=== PATIENT | male | born 1940 | race Caucasian/White ===

== ENCOUNTER → 2022-06-21 10:44 | Outpatient (CLI) | payer MEDICARE, SELFPAY ==
--- NOTE | ~2022-06-21 | XR_ITS ---
EXAM: XR lumbar spine 2-3V DATE: 06/21/2022 10:55 HISTORY: no injury lbp right side for 3 days . COMPARISON: None available. FINDINGS: Osteopenia. Cholecystectomy clips. Mild lumbar scoliosis. 5 nonrib-bearing lumbar-type vert ebral bodies. Pedicles intact. 2 mm anterolisthesis at L4-5. Multilevel disc space narrowing and naseem inal osteophytosis, severe at L5-S1. Vertebral body heights preserved. Multilevel moderate facet scle rosis and hypertrophy. No fracture or dislocation. Abdominal aortic calcification without aneurysm. IMPRESSION: Grade 1 anterolisthesis at L4-5. Multilevel degenerative disc disease, severe at L5-S1. M oderate lower lumbar facet arthropathy. Reviewed, dictated and finalized at location K. IMPRESSION: Grade 1 anterolisthesis at L4-5. Multilevel degenerative disc disea se, severe at L5-S1. Moderate lower lumbar facet arthropathy.
== END ==
PROVIDERS: PCP Physician Assistant; Visit Provider Emergency Medicine
DX: M54.16 Radiculopathy, lumbar region (principal); M51.36 Other intervertebral disc degeneration, lumbar region
CPT/HCPCS: 72100

== ENCOUNTER 2022-07-21 17:08 | Observation (INO) | payer MEDICARE, SELFPAY ==
[2022-07-21] VITALS (19 sets, daily range): BP systolic 144–186; BP diastolic 79–103; PULSE 96–114; RESP 11–27; TEMP 36.8–37; O2SAT 96–100; BMI 25.4
--- NOTE | ~2022-07-21 | XR_ITS ---
EXAMINATION: XR chest 1V portable INDICATION: Altered mental status TECHNIQUE: Portable AP chest at 1814 hours COMPARISON: None available FINDINGS: There are minimal airspace opacities of the lung bases. No pleural effusion or pneumothorax . The cardiomediastinal silhouette is normal for technique. IMPRESSION: 1. Bibasilar airspace opacities, consistent with atelectasis versus pneumonia. Reviewed, dictated and finalized at location F.
--- NOTE | 2022-07-21 17:19 | ED.AMS ---
HPI - Altered Mental Status General Chief Complaint: Altered Mental Status Stated Complaint: combative with - dementia History of Present Illness HPI narrative: 81-year-old male presenting to the emergency department for evaluation of increased agitation. Patient does have dementia and is ANO x1 at baseline. states that she was unable to get him out of the car so she called EMS. Upon arrival to the emergency department patient has no complaints. Patient arrived to the emergency department she states that she was unable to convince the patient not to take a ride in the car. The patient was wishing to go see a house on the [address] that they used to own, states that they sold the house approximately 7 years ago. was trying to convince the patient that he should not go for the car ride and the patient was getting increasingly agitated. states that she feels she can no longer care for the patient at home due to his increasing dementia. states that the children feel that the patient should be admitted to the memory care unit and the is now concerned that she cannot control his behavior at home. Related Data Home Medications Medication Instructions Recorded Confirmed glucosamine HCl 1,500 mg tablet 1,500 mg PO DAILY 02/21/19 07/21/22 aspirin 325 mg tablet 325 mg PO HS 07/04/19 07/21/22 cetirizine 10 mg tablet (Zyrtec) 10 mg PO DAILY 07/04/19 07/21/22 omega-3 fatty acids 1,000 mg 1,000 mg PO BID 07/04/19 07/21/22 capsule (Fish Oil Concentrate) docusate sodium 100 mg capsule 100 mg PO TID 07/21/22 07/21/22 famotidine 20 mg tablet 20 mg PO DAILY 07/21/22 07/21/22 finasteride 5 mg tablet 5 mg PO DAILY 07/21/22 07/21/22 multivitamin with minerals 1 tablet PO DAILY 07/21/22 07/21/22 niacin 500 mg capsule 500 mg PO BID 07/21/22 07/21/22 simvastatin 10 mg tablet 10 mg PO HS 07/21/22 07/21/22 tamsulosin 0.4 mg capsule 0.4 mg PO DAILY 07/21/22 07/21/22 Allergies Allergy/AdvReac Type Severity Reaction Status Date / Time No Known Allergies Allergy Verified 06/21/22 10:10 Review of Systems Review of Systems: All systems reviewed & are unremarkable except as noted in HPI and below PMFSH Surgical History Surgical History H/O total cystectomy History of back surgery Hx of cholecystectomy Hx of hernia repair Family History Family History Father Family history of congestive heart failure, Onset Age: 69 Acute myocardial infarction, Onset Age: 69 Mother Family history of alcoholism Acute myocardial infarction, Onset Age: 62 Social History Social History Smoking status: Never smoker Alcohol intake: current Lack of Transportation: No Lack of Food: Never True Current Housing: I Have Housing Concerned About Future Housing: No Difficulty Paying Gas/Electric Bills: No Difficulty Paying for Meds: No Currently Unemployed: No Education: High School Diploma/GED Difficulty w/ Childcare or Family Care: No Exam Narrative: APPEARANCE: Well appearing, no pain, no distress, well-nourished. HEAD: normocephalic, atraumatic. EYES: PERRLA/EOMI, conjunctivae clear. NOSE: Normal no drainage NECK: Supple. No adenopathy, no masses. RESPIRATORY: Airway patent, respirations nonlabored. Clear to auscultation bilaterally, no rales, rhonchi, wheezing. CARDIOVASCULAR: Regular rate and rhythm without murmurs rubs or gallops. ABDOMINAL: Soft, nontender, nondistended, normal bowel sounds MUSCULOSKELETAL: Moves all extremities. Strength/ROM intact, No edema, No calf tenderness. NEURO: Alert. Cranial nerves II through XII intact. SKIN: Warm, dry. Normal Color PSYCHIATRIC: Normal affect/mood. Course Course Emergency Course: 81-year-old male with worsening dementia presented to the emergency department for evaluation. [place]
--- NOTE | 2022-07-21 18:01 | PCCCNOTE ---
Met with patients , she requested a list of local facilities as she may be interested in placing her , patient. patient has [employer]. PT/OT orders were also placed.
[2022-07-21 18:04] LABS: Basophils Percent Auto 0.3 % (0.2-1.2); Eosinophils Absolute Auto 0.2 K/mm3 (0-0.3); Eosinophils Percent Auto 1.1 % (0-4.4); Hematocrit 43.3 % (42.0-52.0); Hemoglobin 14.6 g/dL (14.0-18.0); Immature Granulocyte Absolute 0.14 K/mm3 (0.00-0.031); Lymphocytes Absolute Auto 1.38 K/mm3 (0.9-3.2); Mean Corpuscular HGB Conc 33.7 g/dl (32-36); Mean Corpuscular Hemoglobin 32.7 pg (26-34); Mean Corpuscular Volume 97.1 fl (80-100); Mean Platelet Volume 10.3 fl (7.4-10.4); Monocytes Absolute Auto 1.3 K/mm3 (0.1-0.6); Monocytes Percent Auto 9.7 % (2.6-8.5); Neutrophils Absolute Auto 10.7 K/mm3 (1.3-6.7); Neutrophils Percent Auto 77.9 % (45.5-73.1); Platelet Count Result 256 k/mm3 (150-375); Red Blood Count 4.46 M/mm3 (4.6-6.20); Red Cell Distribution Width 12.5 % (11.5-14.5); White Blood Count 13.8 K/mm3 (4.5-10.0)
[2022-07-21 18:15] LABS: Alanine Aminotransferase 28 U/L (6-50); Albumin Level 4.4 g/dL (3.5-5.1); Alkaline Phosphatase 102 U/L (38-126); Anion Gap 8 mmol/L (8-16); Aspartate Amino Transferase 31 U/L (17-59); Bilirubin,Total 0.5 mg/dL (0.2-1.3); Blood Urea Nitrogen 16 mg/dL (9-20); Calcium 8.7 mg/dL (8.4-10.2); Carbon Dioxide 25 mmol/L (22-30); Chloride 105 mmol/L (98-107); Estimated CRCL calculation 73 ml/min; Estimated Glomerular Filt Rate > 60; Glucose 136 mg/dL (65-110); Potassium 4.1 mmol/L (3.4-5.0); Sodium 138 mmol/L (137-145)
[2022-07-21 18:35] LABS: Magnesium 2.4 mg/dL (1.6-2.3)
[2022-07-21 18:36] LABS: INR 0.9; Prothrombin Time 12.8 Seconds (11.1-14.7)
[2022-07-21 19:04] LABS: Influenza A QL RT-PCR Negative (Negative); Influenza B QL RT-PCR Negative (Negative); RSV RNA, RT-PCR Negative (Negative); SARS-CoV-2 RNA PCR Negative (Negative)
--- NOTE | 2022-07-21 19:14 | PC.NURSE ---
Patient report given to HERMELINDO Salter. All questions answered and care of patient transferred.
[2022-07-21] MEDS: IBUPROFEN 400 MG TABLET PO (19:20)
[2022-07-21 19:37] LABS: Appearance Urine Clear (Clear); Bilirubin Urine Negative (Negative); Blood Urine Negative (Negative); Color Urine Yellow (Yellow); Glucose Urine UA Negative (Negative); Ketones Urine Negative (Negative); Leukocyte Esterase Ur Negative LEU/UL (Negative); Nitrate Urine Negative (Negative); Protein Urine Negative (Negative); Specific Grav Ur 1.014 (1.001-1.035); Urobilinogen Urine 0.2 mg/dL (<2.0)
[2022-07-21 19:46] LABS: Add Urine Microscopic? NO
--- NOTE | 2022-07-21 20:18 | PM.IMHP ---
H&P: HPI History of Present Illness Date/Time: 07/21/22 20:18 Chief Complaint: AMS Narrative: This is an 81-year-old male with past medical history significant for dementia patient resides at home with who is her main caregiver, benign prostatic hyperplasia, degenerative joint disease. Patient was brought to the emergency room for evaluation due to altered mental status he is unable to provide any meaningful history can tell why his in the emergency room he keeps saying the he got tangled up in the stairs which his denies according to he kept wanting to leave the house stating he needed to get somewhere and got agitated. Preliminary workup was significant for a chest x-ray was reported as: EXAMINATION: XR chest 1V portable INDICATION: Altered mental status TECHNIQUE: Portable AP chest at 1814 hours COMPARISON: None available FINDINGS: There are minimal airspace opacities of the lung bases. No pleural effusion or pneumothorax. The cardiomediastinal silhouette is normal for technique. IMPRESSION: 1. Bibasilar airspace opacities, consistent with atelectasis versus pneumonia. Review of Systems Review of Systems: ROS unobtainable: Yes unobtainable due to medical condition (Dementia) [facility] Surgical History Surgical History H/O total cystectomy History of back surgery Hx of cholecystectomy Hx of hernia repair Family History Family History Father Family history of congestive heart failure, Onset Age: 69 Acute myocardial infarction, Onset Age: 69 Mother Family history of alcoholism Acute myocardial infarction, Onset Age: 62 Social History Social History Smoking status: Former smoker Alcohol intake: never Substance use: never Substance use type: does not use Lack of Transportation: No Lack of Food: Never True Current Housing: I Have Housing Concerned About Future Housing: No Difficulty Paying Gas/Electric Bills: No Difficulty Paying for Meds: No Currently Unemployed: No Education: High School Diploma/GED Difficulty w/ Childcare or Family Care: No Spiritual care concerns: No Meds Home Medications and Allergies Home Medications Medication Instructions Recorded Confirmed Type glucosamine HCl 1,500 mg tablet 1,500 mg PO DAILY 02/21/19 07/21/22 History aspirin 325 mg tablet 325 mg PO HS 07/04/19 07/21/22 History cetirizine 10 mg tablet (Zyrtec) 10 mg PO DAILY 07/04/19 07/21/22 History omega-3 fatty acids 1,000 mg 1,000 mg PO BID 07/04/19 07/21/22 History capsule (Fish Oil Concentrate) donepezil 5 mg tablet (Aricept) 2.5 mg PO QHS #90 tabs 11/03/21 07/21/22 Rx memantine 5 mg tablet 5 mg PO BID #180 tabs 05/24/22 07/21/22 Rx naproxen 500 mg tablet 500 mg PO BID PRN pain #60 tabs 06/21/22 07/21/22 Rx quetiapine 25 mg tablet (Seroquel) 25 mg PO BID #60 tabs 07/01/22 07/21/22 Rx docusate sodium 100 mg capsule 100 mg PO TID 07/21/22 07/21/22 History famotidine 20 mg tablet 20 mg PO DAILY 07/21/22 07/21/22 History finasteride 5 mg tablet 5 mg PO DAILY 07/21/22 07/21/22 History multivitamin with minerals 1 tablet PO DAILY 07/21/22 07/21/22 History niacin 500 mg capsule 500 mg PO BID 07/21/22 07/21/22 History simvastatin 10 mg tablet 10 mg PO HS 07/21/22 07/21/22 History tamsulosin 0.4 mg capsule 0.4 mg PO DAILY 07/21/22 07/21/22 History Allergies Allergy/AdvReac Type Severity Reaction Status Date / Time No Known Allergies Allergy Verified 06/21/22 10:10 Vital Signs Vital Signs - 24 hr 07/21/22 17:11 07/21/22 17:30 07/21/22 17:27 Temperature 98.6 F Pulse Rate 114 H 114 H 108 H Respiratory Rate 20 27 H Blood Pressure 175/85 H Pulse Oximetry 100 Oxygen Delivery Room Air 07/21/22 17:30 07/21/22 17:31 07/21/22 17:45 Temperature Pulse Rate 107 H 107 H 108 H Respiratory Ra
--- NOTE | 2022-07-21 21:44 | ADMGEN ---
This patient, Bam Stoddard Sr., was admitted to Medical Room 255-01. Patient/family oriented to hospital policies and general routines including ID bracelet, bed and alarms, visiting hours, pain management, procedures, bathroom and other care routines, personal items, smoking policy, room service/diet, and visiting hours. Information on how to activate the Rapid Response Team has been discussed. Patient/Family are encouraged to report perceived risks to care and to ask questions if they do not understand what they are told or what they should do.
[2022-07-21] MEDS: AZITHROMYCIN 500 MG/NS 250 ML 500 MG/250 ML BAG 250 MG IVPB (21:46)
[2022-07-22 05:38] VITALS: BP 151/78; PULSE 70; RESP 18; TEMP 36.7; O2SAT 96
[2022-07-22 08:00] VITALS: PULSE 70; RESP 18; O2SAT 96
--- NOTE | 2022-07-22 08:14 | ECG_ITS ---
Measurements Intervals [place] Rate: 74 P: 59 TX: 160 QRS: 8 QRSD: 94 T: 80 QT: 375 QTc: 418 Interpretive Statements SINUS RHYTHM PROBABLE INFERIOR MYOCARDIAL INFARCTION , PROBABLY OLD [35 ms Q WAVE IN II/aVF] NO PREVIOUS ECG AVAILABLE FOR COMPARISON Electronically Signed On 07-22-2022 10:57:23 CDT by Sunshine John M.D.
[2022-07-22 08:54] LABS: Hematocrit 40.8 % (42.0-52.0); Hemoglobin 13.5 g/dL (14.0-18.0); Mean Corpuscular HGB Conc 33.1 g/dl (32-36); Mean Corpuscular Hemoglobin 32.5 pg (26-34); Mean Corpuscular Volume 98.1 fl (80-100); Mean Platelet Volume 10.4 fl (7.4-10.4); Platelet Count Result 234 k/mm3 (150-375); Red Blood Count 4.16 M/mm3 (4.6-6.20); Red Cell Distribution Width 12.6 % (11.5-14.5); White Blood Count 12.9 K/mm3 (4.5-10.0)
[2022-07-22] MEDS: THERAPEUTIC MULTIVITAMINS/MINERALS TAB (*BKC) 1 TABLET PO (09:03)
[2022-07-22] MEDS: FAMOTIDINE 20 MG TABLET PO (09:03)
[2022-07-22] MEDS: OMEGA 3 POLYUNSAT FATTY ACIDS 1 GM CAP PO ×2 (09:03→17:25)
[2022-07-22] MEDS: DOCUSATE SODIUM 100 MG CAPSULE PO ×2 (09:03→17:25)
[2022-07-22] MEDS: MEMANTINE 5 MG TABLET PO ×2 (09:03→20:49)
[2022-07-22] MEDS: TAMSULOSIN HCL 0.4 MG CAPSULE PO (09:03)
[2022-07-22] MEDS: LORATADINE 10 MG TABLET PO (09:03)
[2022-07-22] MEDS: NIACIN SA 500 MG TABLET PO ×2 (09:04→17:25)
[2022-07-22] MEDS: FINASTERIDE 5 MG TABLET PO (09:04)
[2022-07-22] MEDS: QUEtiapine FUMARATE 25 MG TABLET PO ×2 (09:04→20:49)
[2022-07-22 09:16] LABS: Anion Gap 3 mmol/L (8-16); Blood Urea Nitrogen 13 mg/dL (9-20); Calcium 8.1 mg/dL (8.4-10.2); Carbon Dioxide 28 mmol/L (22-30); Chloride 108 mmol/L (98-107); Estimated CRCL calculation 69 ml/min; Estimated Glomerular Filt Rate > 60; Glucose 109 mg/dL (65-110); Potassium 4.1 mmol/L (3.4-5.0); Sodium 139 mmol/L (137-145)
[2022-07-22 13:49] VITALS: BP 148/88; PULSE 88; RESP 18; TEMP 36.8; O2SAT 96
--- NOTE | 2022-07-22 14:31 | PM.IMPN ---
Progress Note: A&P Assessment and Plan (1) Pneumonia: Code(s): J18.9 - Pneumonia, unspecified organism Status: Acute Assessment and Plan: CXR on presentation shows bibasilar airspace opacities concerning for pneumonia. Patient with mild leukocytosis on presentation. Remains afebrile. Continue ceftriaxone and azithromycin (QTc reviewed) Blood cultures pending Attempt sputum culture COVID and influenza negative Check urinary Legionella and pneumococcal antigens Supportive care to include bronchodilators as needed, incentive spirometry, Cornet valve, expectorants (2) Altered mental status: Code(s): R41.82 - Altered mental status, unspecified Status: Acute Assessment and Plan: Per patient's , patient more acutely confused prior to presentation, likely secondary to infectious etiology in the setting of dementia. Patient appears to be at his baseline at this time. Continue with supportive care and plan as above (3) Dementia with behavioral disturbance: Code(s): F03.918 - Unspecified dementia, unspecified severity, with other behavioral disturbance Status: Acute Assessment and Plan: With agitated/aggressive behavior. Continue home donepezil, memantine, and Seroquel for behavioral disturbances. Patient's no longer able to care for the patient independently at home. Will need to consider placement options. Appreciate care coordination evaluation (4) Benign labile hypertension: Code(s): I10 - Essential (primary) hypertension Status: Acute Assessment and Plan: Blood pressure is elevated on admission up to 180s systolic, improved today in the 140 systolic. Patient does not appear to be on any antihypertensives. Monitor BP trends closely and consider addition of antihypertensive as needed Subjective Date/time seen: 07/22/22 14:31 Interval history: Date of service: 07/22/2022 Bam Stoddard is an 81-year-old male with a history of dementia with behavioral disturbances, BPH, hyperlipidemia who is seen in follow-up for pneumonia. The patient is oriented to self and location only. He is able to state his name, knows he is at [facility], he is aware that we are in the summer season but cannot identify the month or the year. He can identify some simple objects. He is unsure of the details regarding his hospitalization. Cannot recall what he had for breakfast this morning. He denies shortness of breath, cough, chest pain, abdominal pain. His is present at the bedside who reports that he has been agitated at home and she is no longer able to care for him. Review of Systems Review of Systems: ROS unobtainable: Yes unobtainable due to mental status Exam Narrative: General: Well-nourished, well-appearing 81-year-old male, sitting up in bed, comfortable, NARD Neuro: awake, alert and oriented x2, able to follow commands, speech clear, no focal neuro deficits noted, exhibits confusion HEENMT: normocephalic, atraumatic, EOMI, sclerae anicteric Respiratory: clear to auscultation bilaterally, nonlabored breathing Cardio: regular rate, regular rhythm with S1-S2 Abdomen: nondistended, normoactive bowel sounds, soft, nontender to palpation Extremities: no edema, erythema, or tenderness to palpation Skin: no rashes or lesions, warm and dry Psych: Confused, judgment and insight poor Objective Data Vital Signs Vital Signs: Vital Signs - 24 hr 07/21/22 17:11 07/21/22 17:30 07/21/22 17:27 Temperature 98.6 F Pulse Rate 114 H 114 H 108 H Respiratory Rate 20 27 H Blood Pressure 175/85 H Pulse Oximetry 100 Oxygen Delivery Room Air 07/21/22 17:30 07/21/22 17:31 07/21/22 17:45 Temperature Pulse Rate 107 H 107 H 108 H Respiratory Rate 16 24 H 11 L Blood Pressure 175/85 H Pulse Oximetry 98 98 97 Oxygen Delivery 07/21/22 17:46 07/21/22 18:02 07/21/22 18:15 Temperature Pulse Rate 105 H 104 H
--- NOTE | 2022-07-22 16:26 | PCPTNOTE ---
On 07/22/22, the student, [Maureen Melo], provided care and completed [facility] documentation on this patient. I have reviewed the student's documentation and agree with the findings.
[2022-07-22 17:18] VITALS: O2SAT 96
[2022-07-22] MEDS: OLANZapine 5 MG, WATER, STERILE FOR INJECTION 2.1 ML IM (18:59)
[2022-07-22 19:39] VITALS: BP 164/87; PULSE 80; RESP 16; TEMP 36.4; O2SAT 99
[2022-07-22] MEDS: SIMVASTATIN 10 MG TABLET PO (20:49)
[2022-07-22] MEDS: ASPIRIN 325 MG TABLET PO (20:49)
[2022-07-22] MEDS: guaiFENesin 12 HR 600 MG TABCR PO (20:49)
[2022-07-22] MEDS: AZITHROMYCIN 500 MG/NS 250 ML 500 MG/250 ML BAG 200 MG IVPB (21:13)
[2022-07-22 22:09] VITALS: O2SAT 97
[2022-07-23 05:00] VITALS: BP 148/68; PULSE 61; RESP 16; TEMP 36.6; O2SAT 96
[2022-07-23 05:21] LABS: Hematocrit 39.7 % (42.0-52.0); Hemoglobin 12.8 g/dL (14.0-18.0); Mean Corpuscular HGB Conc 32.2 g/dl (32-36); Mean Corpuscular Hemoglobin 31.7 pg (26-34); Mean Corpuscular Volume 98.3 fl (80-100); Mean Platelet Volume 10.5 fl (7.4-10.4); Platelet Count Result 210 k/mm3 (150-375); Red Blood Count 4.04 M/mm3 (4.6-6.20); Red Cell Distribution Width 12.4 % (11.5-14.5); White Blood Count 9.5 K/mm3 (4.5-10.0)
[2022-07-23 05:41] LABS: Anion Gap 3 mmol/L (8-16); Blood Urea Nitrogen 13 mg/dL (9-20); Calcium 7.9 mg/dL (8.4-10.2); Carbon Dioxide 29 mmol/L (22-30); Chloride 107 mmol/L (98-107); Estimated CRCL calculation 61 ml/min; Estimated Glomerular Filt Rate > 60; Glucose 114 mg/dL (65-110); Potassium 3.8 mmol/L (3.4-5.0); Sodium 139 mmol/L (137-145)
[2022-07-23] MEDS: guaiFENesin 12 HR 600 MG TABCR PO ×2 (09:10→22:58)
[2022-07-23] MEDS: FAMOTIDINE 20 MG TABLET PO (09:10)
[2022-07-23] MEDS: FINASTERIDE 5 MG TABLET PO (09:10)
[2022-07-23] MEDS: OMEGA 3 POLYUNSAT FATTY ACIDS 1 GM CAP PO ×2 (09:10→16:56)
[2022-07-23] MEDS: TAMSULOSIN HCL 0.4 MG CAPSULE PO (09:10)
[2022-07-23] MEDS: MEMANTINE 5 MG TABLET PO ×2 (09:10→22:58)
[2022-07-23] MEDS: NIACIN SA 500 MG TABLET PO ×2 (09:10→16:56)
[2022-07-23] MEDS: LORATADINE 10 MG TABLET PO (09:10)
[2022-07-23] MEDS: THERAPEUTIC MULTIVITAMINS/MINERALS TAB (*BKC) 1 TABLET PO (09:10)
[2022-07-23] MEDS: DOCUSATE SODIUM 100 MG CAPSULE PO ×3 (09:10→16:56)
[2022-07-23] MEDS: QUEtiapine FUMARATE 25 MG TABLET PO ×2 (09:11→22:59)
[2022-07-23 14:00] VITALS: BP 162/77; PULSE 81; RESP 20; TEMP 36.4; O2SAT 100
--- NOTE | 2022-07-23 17:15 | PM.IMPN ---
Progress Note: A&P Assessment and Plan (1) Pneumonia: Code(s): J18.9 - Pneumonia, unspecified organism Status: Acute Assessment and Plan: CXR on presentation shows bibasilar airspace opacities concerning for pneumonia. Patient with mild leukocytosis on presentation. Remains afebrile. Continue ceftriaxone and azithromycin (QTc reviewed) Blood cultures NGTD Sputum culture not performed COVID and influenza negative Urinary Legionella and pneumococcal antigens pending Supportive care to include bronchodilators as needed, incentive spirometry, Cornet valve, expectorants Change to oral abx (2) Altered mental status: Code(s): R41.82 - Altered mental status, unspecified Status: Acute Assessment and Plan: Per patient's , patient more acutely confused prior to presentation, likely secondary to infectious etiology in the setting of dementia. Patient appears to be at his baseline at this time. Continue with supportive care and plan as above (3) Dementia with behavioral disturbance: Code(s): F03.918 - Unspecified dementia, unspecified severity, with other behavioral disturbance Status: Acute Assessment and Plan: With agitated/aggressive behavior. Home donepezil, memantine, and Seroquel have annie resumed. Patient's no longer able to care for the patient independently at home and placement being arranged. Difficulty with placement given the patient's agitation at times. Psych consult. Appreciate care coordination evaluation (4) Benign labile hypertension: Code(s): I10 - Essential (primary) hypertension Status: Acute Assessment and Plan: Patient's blood pressure was reviewed on 07/23 Systolic blood pressure elevated to 140-160 range. Not on medications for HTN. Will continue to monitor for now. Subjective Date/time seen: 07/23/22 17:15 Interval history: 81yo male with dementia with behavioral disturbances, BPH, hyperlipidemia who is seen in follow-up for pneumonia. The patient is alert but confused. Hx obtained from at bedside. states the patient has not had any odynophagia or dysphagia. He eats normally. He has had dementia for many years and has been on Aricept and Namenda for a long time. About a month and a half ago, he was started on Seroquel 25 mg daily. Dose was increased to 50 mg about 2 weeks ago. Patient gets agitated at times wanting to drive to his vacation home but the vacation home was sold many years ago. His tries to explain this to him but patient becomes agitated. He has never threatened her directly and has never been abusive. No auditory or visual hallucinations. He does confuse his with his mother. He talks about finding his mother and sister which is more rooted in anxiety. He is able to help clean the kitchen. keeps him on a regimented schedule. Exam Narrative: AF 97.6 162/77 81 20 100% ra Gen - NARD Chest - right base crackles o/w clear. nml RR CV - RRR S1/S2 Abd - Soft, NT/ND, Positive BS Ext - No pedal edema Neuro - Alert but confused. Nonfocal exam. MMSE 3. Psych - Nml mood and affect. Calm and cooperative Skin - Warm and dry Objective Data Vital Signs Vital Signs: Vital Signs - 24 hr 07/22/22 17:18 07/22/22 19:39 07/23/22 05:00 Temperature 97.6 F 97.8 F Pulse Rate 80 61 Respiratory Rate 16 16 Blood Pressure 164/87 H 148/68 H Pulse Oximetry 96 99 96 Oxygen Delivery Room Air 07/22/22 22:09 07/23/22 08:00 07/23/22 14:00 Temperature 97.6 F Pulse Rate 81 Respiratory Rate 20 Blood Pressure 162/77 H Pulse Oximetry 97 100 Oxygen Delivery Room Air Room Air Intake/Output Intake/Output: Intake & Output 07/20/22 07/21/22 07/22/22 07/23/22 23:59 23:59 23:59 23:59 Intake Total 300 2420 690 Balance 300 2420 690 Meds/Results Medications: Active Medications Generic Name Dose Route Start Last Admin Trade Name Freq
[2022-07-23] MEDS: AZITHROMYCIN 250 MG TABLET PO (18:56)
[2022-07-23 19:23] VITALS: BP 166/72; PULSE 87; RESP 16; TEMP 36.4; O2SAT 98
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
[2022-07-23 22:19] LABS: Vitamin D 25 Hydroxy 50.2 ng/mL
[2022-07-23 22:31] LABS: Hepatitis B Surface Antigen Negative (Negative)
[2022-07-23 22:37] LABS: HAV RESULT Negative (Negative); Hepatitis B Core IgM Result Negative (Negative)
[2022-07-23 22:40] LABS: HIV 1/2 Ab P24 Ag Result Negative (Negative)
[2022-07-23 22:48] LABS: Hepatitis C Virus Antibody Negative (Negative)
[2022-07-23] MEDS: CEFDINIR 300 MG CAPSULE PO (22:58)
[2022-07-23] MEDS: SIMVASTATIN 10 MG TABLET PO (22:59)
[2022-07-23] MEDS: ASPIRIN 325 MG TABLET PO (23:12)
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
[2022-07-24 07:00] VITALS: BP 141/72; PULSE 73; RESP 16; TEMP 36.6; O2SAT 97
[2022-07-24] MEDS: CEFDINIR 300 MG CAPSULE PO ×2 (10:15→20:09)
[2022-07-24] MEDS: THERAPEUTIC MULTIVITAMINS/MINERALS TAB (*BKC) 1 TABLET PO (10:16)
[2022-07-24] MEDS: NIACIN SA 500 MG TABLET PO ×2 (10:16→17:51)
[2022-07-24] MEDS: TAMSULOSIN HCL 0.4 MG CAPSULE PO (10:16)
[2022-07-24] MEDS: QUEtiapine FUMARATE 25 MG TABLET PO (10:16)
[2022-07-24] MEDS: DOCUSATE SODIUM 100 MG CAPSULE PO ×2 (10:16→17:51)
[2022-07-24] MEDS: guaiFENesin 12 HR 600 MG TABCR PO ×2 (10:16→20:11)
[2022-07-24] MEDS: FINASTERIDE 5 MG TABLET PO (10:16)
[2022-07-24] MEDS: FAMOTIDINE 20 MG TABLET PO (10:16)
[2022-07-24] MEDS: MEMANTINE 5 MG TABLET PO ×2 (10:16→20:11)
[2022-07-24] MEDS: OMEGA 3 POLYUNSAT FATTY ACIDS 1 GM CAP PO ×2 (10:16→17:51)
[2022-07-24] MEDS: LORATADINE 10 MG TABLET PO (10:16)
[2022-07-24 14:00] VITALS: BP 164/81; PULSE 105; RESP 20; TEMP 37.2; O2SAT 99
--- NOTE | 2022-07-24 14:53 | PM.IMPN ---
Progress Note: A&P Assessment and Plan (1) Pneumonia: Code(s): J18.9 - Pneumonia, unspecified organism Status: Acute Assessment and Plan: CXR on presentation shows bibasilar airspace opacities concerning for pneumonia. Patient with mild leukocytosis on presentation. Remains afebrile. Continue ceftriaxone and azithromycin (QTc reviewed) Blood cultures NGTD Sputum culture not performed COVID and influenza negative Urinary Legionella and pneumococcal antigens pending Supportive care to include bronchodilators as needed, incentive spirometry, Cornet valve, expectorants Continue oral abx Discharge when okay with care coordination (2) Altered mental status: Code(s): R41.82 - Altered mental status, unspecified Status: Acute Assessment and Plan: Per patient's , patient more acutely confused prior to presentation, likely secondary to infectious etiology in the setting of dementia. Patient appears to be at his baseline at this time. Continue with supportive care and plan as above (3) Dementia with behavioral disturbance: Code(s): F03.918 - Unspecified dementia, unspecified severity, with other behavioral disturbance Status: Acute Assessment and Plan: With agitated/aggressive behavior. Home donepezil, memantine, and Seroquel have annie resumed. Patient's no longer able to care for the patient independently at home and placement being arranged. Difficulty with placement given the patient's agitation at times. MMSE 3. Psych consulted and appreciate their input. Appreciate care coordination evaluation (4) Benign labile hypertension: Code(s): I10 - Essential (primary) hypertension Status: Acute Assessment and Plan: Patient's blood pressure was reviewed on 07/24 Systolic blood pressure elevated to 140-160 range. Not on medications for HTN. Will continue to monitor for now. Subjective Date/time seen: 07/24/22 14:53 Interval history: 81yo male with dementia with behavioral disturbances, BPH, hyperlipidemia who is seen in follow-up for pneumonia. Feels well today. No complaints. Alert but confused. Exam Narrative: AF 99.0 164/81 105 20 99% ra Gen - NARD sitting up in bed feeding himself lunch Chest - CTA bilaterally, nml RR CV - RRR S1/S2 Abd - Soft, NT/ND, Positive BS Ext - No pedal edema Neuro - Alert but confused. Psych - Nml mood and affect. Calm and cooperative Skin - Warm and dry Objective Data Vital Signs Vital Signs: Vital Signs - 24 hr 07/23/22 19:23 07/24/22 07:00 07/24/22 10:15 Temperature 97.6 F 97.9 F Pulse Rate 87 73 Respiratory Rate 16 16 Blood Pressure 166/72 H 141/72 H Pulse Oximetry 98 97 Oxygen Delivery Room Air 07/24/22 14:00 Temperature 99.0 F Pulse Rate 105 H Respiratory Rate 20 Blood Pressure 164/81 H Pulse Oximetry 99 Oxygen Delivery Intake/Output Intake/Output: Intake & Output 07/21/22 07/22/22 07/23/22 07/24/22 23:59 23:59 23:59 23:59 Intake Total 300 2420 1430 1410 Balance 300 2420 1430 1410 Meds/Results Medications: Active Medications Generic Name Dose Route Start Last Admin Trade Name Freq PRN Reason Stop Dose Admin Albuterol 2 puff 07/22/22 14:42 Albuterol Sulfate (*Sp) Aerosol 1 Puff INHALATION Q6HRT PRN Shortness Of Breath Aspirin 325 mg 07/22/22 21:00 07/23/22 23:12 Aspirin 325 Mg Tablet PO 325 mg HS JENNY Administration Azithromycin 250 mg 07/23/22 18:00 07/23/22 18:56 Azithromycin 250 Mg Tablet PO 07/25/22 18:01 250 mg QPM JENNY Administration Cefdinir 300 mg 07/23/22 21:00 07/24/22 10:15 Cefdinir 300 Mg Capsule PO 07/28/22 09:01 300 mg Q12HR JENNY Administration Docusate Sodium 100 mg 07/22/22 09:00 07/24/22 12:02 Docusate Sodium 100 Mg Capsule PO Not Given TID JENNY Famotidine 20 mg 07/22/22 09:00 07/24/22 10:16 Famotidine 20 Mg Tablet PO 20 mg DAILY JENNY Admini
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
[2022-07-24] MEDS: AZITHROMYCIN 250 MG TABLET PO (17:51)
--- NOTE | 2022-07-24 19:52 | PC.NURSE ---
07/24/22299- Dr. Loco made aware of patients aggressive and threatening behavior. No new orders at this time.
[2022-07-24] MEDS: ASPIRIN 325 MG TABLET PO (20:09)
[2022-07-24] MEDS: DONEPEZIL HCL 5 MG TABLET PO (20:09)
[2022-07-24] MEDS: QUEtiapine FUMARATE 100 MG TABLET PO (20:10)
[2022-07-24] MEDS: SIMVASTATIN 10 MG TABLET PO (20:11)
[2022-07-24 21:14] VITALS: BP 162/75; PULSE 84; RESP 14; TEMP 36.7; O2SAT 100
[2022-07-25 06:00] VITALS: BP 153/75; PULSE 72; RESP 16; TEMP 36.6; O2SAT 99
[2022-07-25] MEDS: TAMSULOSIN HCL 0.4 MG CAPSULE PO (08:18)
[2022-07-25] MEDS: FAMOTIDINE 20 MG TABLET PO (08:18)
[2022-07-25] MEDS: FINASTERIDE 5 MG TABLET PO (08:18)
[2022-07-25] MEDS: MEMANTINE 5 MG TABLET PO ×2 (08:18→20:05)
[2022-07-25] MEDS: guaiFENesin 12 HR 600 MG TABCR PO ×2 (08:18→20:04)
[2022-07-25] MEDS: OMEGA 3 POLYUNSAT FATTY ACIDS 1 GM CAP PO ×2 (08:18→17:07)
[2022-07-25] MEDS: NIACIN SA 500 MG TABLET PO ×2 (08:18→17:07)
[2022-07-25] MEDS: LORATADINE 10 MG TABLET PO (08:18)
[2022-07-25] MEDS: DOCUSATE SODIUM 100 MG CAPSULE PO ×2 (08:18→17:07)
[2022-07-25] MEDS: CEFDINIR 300 MG CAPSULE PO ×2 (08:18→20:03)
[2022-07-25] MEDS: QUEtiapine FUMARATE 25 MG TABLET PO (08:18)
[2022-07-25] MEDS: THERAPEUTIC MULTIVITAMINS/MINERALS TAB (*BKC) 1 TABLET PO (08:18)
--- NOTE | 2022-07-25 11:30 | PM.IMPN ---
Progress Note: A&P Assessment and Plan (1) Pneumonia: Code(s): J18.9 - Pneumonia, unspecified organism Status: Acute Assessment and Plan: CXR on presentation shows bibasilar airspace opacities concerning for pneumonia. Patient with mild leukocytosis on presentation. Remains afebrile. Continue ceftriaxone and azithromycin (QTc reviewed) Blood cultures NGTD Sputum culture not performed COVID and influenza negative Urinary Legionella and pneumococcal antigens pending Supportive care to include bronchodilators as needed, incentive spirometry, Cornet valve, expectorants Continue oral abx Discharge when okay with care coordination (2) Altered mental status: Code(s): R41.82 - Altered mental status, unspecified Status: Acute Assessment and Plan: Per patient's , patient more acutely confused prior to presentation, likely secondary to infectious etiology in the setting of dementia. Patient appears to be at his baseline at this time. Continue with supportive care and plan as above (3) Dementia with behavioral disturbance: Code(s): F03.918 - Unspecified dementia, unspecified severity, with other behavioral disturbance Status: Acute Assessment and Plan: With agitated/aggressive behavior. Home donepezil, memantine, and Seroquel have annie resumed. Patient's no longer able to care for the patient independently at home and placement being arranged. Difficulty with placement given the patient's agitation at times. MMSE 3. Psych consulted and appreciate their input. B12, folate and VitD normal. Hepatitis, HIV negative. RPR pending. Medications have been adjusted. Appreciate care coordination evaluation (4) Benign labile hypertension: Code(s): I10 - Essential (primary) hypertension Status: Acute Assessment and Plan: Patient's blood pressure was reviewed on 07/25 Systolic blood pressure elevated to 140-160 range. Not on medications for HTN. Will continue to monitor for now. Subjective Date/time seen: 07/25/22 11:30 Interval history: 81yo male with dementia with behavioral disturbances, BPH, hyperlipidemia who is seen in follow-up for pneumonia. No complaints. Alert but confused. Exam Narrative: AF 97.8 153/75 72 16 99% ra Gen - NARD Chest - CTA bilaterally, nml RR CV - RRR S1/S2 Abd - Soft, NT/ND, Positive BS Ext - No pedal edema Neuro - Alert but confused. Psych - Nml mood and affect. Calm and cooperative Skin - Warm and dry Objective Data Vital Signs Vital Signs: Vital Signs - 24 hr 07/24/22 14:00 07/24/22 21:14 07/24/22 20:00 Temperature 99.0 F 98.1 F Pulse Rate 105 H 84 Respiratory Rate 20 14 Blood Pressure 164/81 H 162/75 H Pulse Oximetry 99 100 Oxygen Delivery Room Air 07/25/22 06:00 Temperature 97.8 F Pulse Rate 72 Respiratory Rate 16 Blood Pressure 153/75 H Pulse Oximetry 99 Oxygen Delivery Intake/Output Intake/Output: Intake & Output 07/22/22 07/23/22 07/24/22 07/25/22 23:59 23:59 23:59 23:59 Intake Total 2420 1430 1650 830 Balance 2420 1430 1650 830 Meds/Results Medications: Active Medications Generic Name Dose Route Start Last Admin Trade Name Freq PRN Reason Stop Dose Admin Albuterol 2 puff 07/22/22 14:42 Albuterol Sulfate (*Sp) Aerosol 1 Puff INHALATION Q6HRT PRN Shortness Of Breath Aspirin 325 mg 07/22/22 21:00 07/24/22 20:09 Aspirin 325 Mg Tablet PO 325 mg HS JENNY Administration Azithromycin 250 mg 07/23/22 18:00 07/24/22 17:51 Azithromycin 250 Mg Tablet PO 07/25/22 18:01 250 mg QPM JENNY Administration Cefdinir 300 mg 07/23/22 21:00 07/25/22 08:18 Cefdinir 300 Mg Capsule PO 07/28/22 09:01 300 mg Q12HR JENNY Administration Docusate Sodium 100 mg 07/22/22 09:00 07/25/22 08:18 Docusate Sodium 100 Mg Capsule PO 100 mg TID JENNY Administration Donepezil HCl 5 mg 07/24/22 21:00 07/24/22 20:09 D
[2022-07-25 13:55] VITALS: BP 156/68; PULSE 96; RESP 18; TEMP 36.4; O2SAT 99
[2022-07-25] MEDS: AZITHROMYCIN 250 MG TABLET PO (17:07)
[2022-07-25 19:25] VITALS: BP 190/81; PULSE 110; RESP 18; TEMP 36.7; O2SAT 96
[2022-07-25] MEDS: QUEtiapine FUMARATE 100 MG TABLET PO (20:04)
[2022-07-25] MEDS: DONEPEZIL HCL 5 MG TABLET PO (20:05)
[2022-07-25] MEDS: ASPIRIN 325 MG TABLET PO (20:05)
[2022-07-25] MEDS: SIMVASTATIN 10 MG TABLET PO (20:05)
[2022-07-26 06:00] VITALS: BP 172/70; PULSE 77; RESP 18; TEMP 36.4; O2SAT 97
[2022-07-26] MEDS: DOCUSATE SODIUM 100 MG CAPSULE PO ×3 (10:21→18:11)
[2022-07-26] MEDS: guaiFENesin 12 HR 600 MG TABCR PO ×2 (10:21→20:13)
[2022-07-26] MEDS: OMEGA 3 POLYUNSAT FATTY ACIDS 1 GM CAP PO ×2 (10:21→18:12)
[2022-07-26] MEDS: QUEtiapine FUMARATE 25 MG TABLET PO (10:22)
[2022-07-26] MEDS: LORATADINE 10 MG TABLET PO (10:22)
[2022-07-26] MEDS: MEMANTINE 5 MG TABLET PO ×2 (10:22→20:13)
[2022-07-26] MEDS: TAMSULOSIN HCL 0.4 MG CAPSULE PO (10:23)
[2022-07-26] MEDS: THERAPEUTIC MULTIVITAMINS/MINERALS TAB (*BKC) 1 TABLET PO (10:23)
[2022-07-26] MEDS: CEFDINIR 300 MG CAPSULE PO ×2 (10:23→20:13)
[2022-07-26] MEDS: NIACIN SA 500 MG TABLET PO ×2 (10:23→18:11)
[2022-07-26] MEDS: FAMOTIDINE 20 MG TABLET PO (10:23)
[2022-07-26] MEDS: FINASTERIDE 5 MG TABLET PO (10:26)
[2022-07-26 10:42] VITALS: BP 179/80; PULSE 80; RESP 14; O2SAT 100
[2022-07-26 14:00] VITALS: BP 157/71; PULSE 89; RESP 18; TEMP 36.8; O2SAT 99
--- NOTE | 2022-07-26 15:23 | PM.IMPN ---
Progress Note: A&P Assessment and Plan (1) Pneumonia: Code(s): J18.9 - Pneumonia, unspecified organism Status: Acute Assessment and Plan: CXR on presentation shows bibasilar airspace opacities concerning for pneumonia. Patient with mild leukocytosis on presentation. Remains afebrile. Started on ceftriaxone and azithromycin Blood cultures NGTD Sputum culture not performed COVID and influenza negative Urinary Legionella and pneumococcal antigens pending Supportive care to include bronchodilators as needed, incentive spirometry, Cornet valve, expectorants Continue oral abx Discharge when okay with care coordination (2) Altered mental status: Code(s): R41.82 - Altered mental status, unspecified Status: Acute Assessment and Plan: Per patient's , patient more acutely confused prior to presentation, likely secondary to infectious etiology in the setting of dementia. Patient appears to be at his baseline at this time. Continue with supportive care and plan as above (3) Dementia with behavioral disturbance: Code(s): F03.918 - Unspecified dementia, unspecified severity, with other behavioral disturbance Status: Acute Assessment and Plan: With agitated/aggressive behavior. Home donepezil, memantine, and Seroquel have been resumed. Patient's no longer able to care for the patient independently at home and placement being arranged. Difficulty with placement given the patient's agitation at times. MMSE 3. Psych consulted and appreciate their input. B12, folate and VitD normal. Hepatitis, HIV negative. RPR pending. Medications have been adjusted. Appreciate psychiatry input. Also appreciate care coordination evaluation (4) Benign labile hypertension: Code(s): I10 - Essential (primary) hypertension Status: Acute Assessment and Plan: Patient's blood pressure was reviewed on 07/26 Systolic blood pressure elevated to 140-160 range. Not on medications for HTN. Will add low dose Norvasc given the consistently elevated BP. Continue to monitor. Subjective Date/time seen: 07/26/22 15:23 Interval history: 81yo male with dementia with behavioral disturbances, BPH, hyperlipidemia who is seen in follow-up for pneumonia. No complaints. Alert but confused. Eating normally. Exam Narrative: AF 98.3 157/71 89 18 99% ra Gen - NARD sitting up in chair Chest - CTA bilaterally, nml RR CV - RRR S1/S2 Abd - Soft, NT/ND, Positive BS Ext - No pedal edema Neuro - Alert but confused. Psych - Nml mood and affect. Calm, pleasant and cooperative Skin - Warm and dry Objective Data Vital Signs Vital Signs: Vital Signs - 24 hr 07/25/22 19:25 07/25/22 20:00 07/26/22 06:00 Temperature 98.1 F 97.5 F L Pulse Rate 110 H 77 Respiratory Rate 18 18 Blood Pressure 190/81 H 172/70 H Pulse Oximetry 96 97 Oxygen Delivery Room Air 07/26/22 10:42 07/26/22 14:00 07/26/22 10:25 Temperature 98.3 F Pulse Rate 80 89 Respiratory Rate 14 18 Blood Pressure 179/80 H 157/71 H Pulse Oximetry 100 99 Oxygen Delivery Room Air Intake/Output Intake/Output: Intake & Output 07/23/22 07/24/22 07/25/22 07/26/22 23:59 23:59 23:59 23:59 Intake Total 1430 1650 1550 960 Output Total 3 Balance 1430 1650 1550 957 Meds/Results Medications: Active Medications Generic Name Dose Route Start Last Admin Trade Name Freq PRN Reason Stop Dose Admin Albuterol 2 puff 07/22/22 14:42 Albuterol Sulfate (*Sp) Aerosol 1 Puff INHALATION Q6HRT PRN Shortness Of Breath Aspirin 325 mg 07/22/22 21:00 07/25/22 20:05 Aspirin 325 Mg Tablet PO 325 mg HS JENNY Administration Cefdinir 300 mg 07/23/22 21:00 07/26/22 10:23 Cefdinir 300 Mg Capsule PO 07/28/22 09:01 300 mg Q12HR JENNY Administration Docusate Sodium 100 mg 07/22/22 09:00 07/26/22 12:51 Docusate Sodium 100 Mg Capsule PO 100 mg TID JENNY Administ
[2022-07-26 16:55] LABS: Rapid Plasma Reagin Non-Reactive (NonReactive)
[2022-07-26 18:10] VITALS: BP 161/73; PULSE 82; RESP 14; O2SAT 100
[2022-07-26] MEDS: amLODIPine BESYLATE 2.5 MG TABLET PO (18:11)
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
[2022-07-26 20:11] VITALS: BP 164/96; PULSE 85; RESP 18; TEMP 36.5; O2SAT 100
[2022-07-26] MEDS: QUEtiapine FUMARATE 100 MG TABLET PO (20:13)
[2022-07-26] MEDS: SIMVASTATIN 10 MG TABLET PO (20:13)
[2022-07-26] MEDS: ASPIRIN 325 MG TABLET PO (20:13)
[2022-07-26] MEDS: DONEPEZIL HCL 5 MG TABLET PO (20:14)
[2022-07-27 06:00] VITALS: BP 136/86; PULSE 79; RESP 18; TEMP 36.8; O2SAT 96
[2022-07-27] MEDS: amLODIPine BESYLATE 2.5 MG TABLET PO (08:34)
[2022-07-27] MEDS: DOCUSATE SODIUM 100 MG CAPSULE PO ×3 (08:35→17:04)
[2022-07-27] MEDS: MEMANTINE 5 MG TABLET PO ×2 (08:35→20:24)
[2022-07-27] MEDS: FAMOTIDINE 20 MG TABLET PO (08:35)
[2022-07-27] MEDS: LORATADINE 10 MG TABLET PO (08:35)
[2022-07-27] MEDS: FINASTERIDE 5 MG TABLET PO (08:35)
[2022-07-27] MEDS: guaiFENesin 12 HR 600 MG TABCR PO ×2 (08:35→20:24)
[2022-07-27] MEDS: CEFDINIR 300 MG CAPSULE PO ×2 (08:35→20:24)
[2022-07-27] MEDS: QUEtiapine FUMARATE 25 MG TABLET PO (08:36)
[2022-07-27] MEDS: OMEGA 3 POLYUNSAT FATTY ACIDS 1 GM CAP PO ×2 (08:36→17:04)
[2022-07-27] MEDS: NIACIN SA 500 MG TABLET PO ×2 (08:36→17:04)
[2022-07-27] MEDS: THERAPEUTIC MULTIVITAMINS/MINERALS TAB (*BKC) 1 TABLET PO (08:36)
[2022-07-27] MEDS: TAMSULOSIN HCL 0.4 MG CAPSULE PO (08:36)
--- NOTE | 2022-07-27 10:39 | PM.IMPN ---
Progress Note: A&P Assessment and Plan (1) Pneumonia: Code(s): J18.9 - Pneumonia, unspecified organism Status: Acute Assessment and Plan: CXR on presentation shows bibasilar airspace opacities concerning for pneumonia. Patient with mild leukocytosis on presentation. Remains afebrile. Started on ceftriaxone and azithromycin Blood cultures Negative Sputum culture not performed COVID and influenza negative Urinary Legionella and pneumococcal antigens pending Continue oral abx Discharge when okay with care coordination (2) Altered mental status: Code(s): R41.82 - Altered mental status, unspecified Status: Acute Assessment and Plan: Per patient's , patient more acutely confused prior to presentation, likely secondary to infectious etiology in the setting of dementia. Patient appears to be at his baseline at this time. Continue with supportive care and plan as above (3) Dementia with behavioral disturbance: Code(s): F03.918 - Unspecified dementia, unspecified severity, with other behavioral disturbance Status: Acute Assessment and Plan: With agitated/aggressive behavior. Home donepezil, memantine, and Seroquel have been resumed. Patient's no longer able to care for the patient independently at home and placement being arranged. Difficulty with placement given the patient's agitation at times. MMSE 3. Psych consulted and appreciate their input. B12, folate and VitD normal. Hepatitis, HIV negative. RPR pending. Medications have been adjusted. Appreciate psychiatry input. Also appreciate care coordination evaluation (4) Benign labile hypertension: Code(s): I10 - Essential (primary) hypertension Status: Acute Assessment and Plan: Patient's blood pressure was reviewed on 07/27 Systolic blood pressure elevated but better Was not on medications for HTN on admission. Low dose Norvasc added. Continue to monitor. Subjective Date/time seen: 07/27/22 10:39 Interval history: 81yo male with dementia with behavioral disturbances, BPH, hyperlipidemia who is seen in follow-up for pneumonia. No complaints. Alert but confused. Exam Narrative: AF 98.3 136/86 79 18 96% ra Gen - NARD lying in bed Chest - CTA bilaterally, nml RR CV - RRR S1/S2 Abd - Soft, NT/ND, Positive BS Ext - No pedal edema Neuro - Alert but confused. Psych - Nml mood and affect. Calm, pleasant and cooperative Skin - Warm and dry Objective Data Vital Signs Vital Signs: Vital Signs - 24 hr 07/26/22 10:42 07/26/22 14:00 07/26/22 18:10 Temperature 98.3 F Pulse Rate 80 89 82 Respiratory Rate 14 18 14 Blood Pressure 179/80 H 157/71 H 161/73 H Pulse Oximetry 100 99 100 Oxygen Delivery 07/26/22 20:11 07/27/22 06:00 07/27/22 08:00 Temperature 97.7 F 98.3 F Pulse Rate 85 79 Respiratory Rate 18 18 Blood Pressure 164/96 H 136/86 Pulse Oximetry 100 96 Oxygen Delivery Room Air Intake/Output Intake/Output: Intake & Output 07/24/22 07/25/22 07/26/22 07/27/22 23:59 23:59 23:59 23:59 Intake Total 1650 1550 1440 240 Output Total 3 Balance 1650 1550 1437 240 Meds/Results Medications: Active Medications Generic Name Dose Route Start Last Admin Trade Name Freq PRN Reason Stop Dose Admin Albuterol 2 puff 07/22/22 14:42 Albuterol Sulfate (*Sp) Aerosol 1 Puff INHALATION Q6HRT PRN Shortness Of Breath Amlodipine Besylate 2.5 mg 07/26/22 15:30 07/27/22 08:34 Amlodipine Besylate 2.5 Mg Tablet PO 2.5 mg QAM JENNY Administration Aspirin 325 mg 07/22/22 21:00 07/26/22 20:13 Aspirin 325 Mg Tablet PO 325 mg HS JENNY Administration Cefdinir 300 mg 07/23/22 21:00 07/27/22 08:35 Cefdinir 300 Mg Capsule PO 07/28/22 09:01 300 mg Q12HR JENNY Administration Docusate Sodium 100 mg 07/22/22 09:00 07/27/22 08:35 Docusate Sodium 100 Mg Capsule PO 100 mg TID JENNY Administration [place]
[2022-07-27 14:00] VITALS: BP 158/75; PULSE 94; RESP 20; TEMP 36.2; O2SAT 100
[2022-07-27] MEDS: ASPIRIN 325 MG TABLET PO (20:24)
[2022-07-27] MEDS: DONEPEZIL HCL 5 MG TABLET PO (20:24)
[2022-07-27] MEDS: QUEtiapine FUMARATE 100 MG TABLET PO (20:25)
[2022-07-27] MEDS: SIMVASTATIN 10 MG TABLET PO (20:25)
[2022-07-27 20:35] VITALS: BP 155/80; PULSE 83; RESP 16; TEMP 36.7; O2SAT 98
[2022-07-28] MEDS: amLODIPine BESYLATE 2.5 MG TABLET PO (08:25)
[2022-07-28] MEDS: NIACIN SA 500 MG TABLET PO (08:25)
[2022-07-28] MEDS: OMEGA 3 POLYUNSAT FATTY ACIDS 1 GM CAP PO (08:25)
[2022-07-28] MEDS: TAMSULOSIN HCL 0.4 MG CAPSULE PO (08:25)
[2022-07-28] MEDS: guaiFENesin 12 HR 600 MG TABCR PO (08:25)
[2022-07-28] MEDS: DOCUSATE SODIUM 100 MG CAPSULE PO ×2 (08:25→13:16)
[2022-07-28] MEDS: QUEtiapine FUMARATE 25 MG TABLET PO (08:25)
[2022-07-28] MEDS: FINASTERIDE 5 MG TABLET PO (08:25)
[2022-07-28] MEDS: THERAPEUTIC MULTIVITAMINS/MINERALS TAB (*BKC) 1 TABLET PO (08:25)
[2022-07-28] MEDS: LORATADINE 10 MG TABLET PO (08:26)
[2022-07-28] MEDS: FAMOTIDINE 20 MG TABLET PO (08:26)
[2022-07-28] MEDS: MEMANTINE 5 MG TABLET PO (08:26)
[2022-07-28] MEDS: QUEtiapine FUMARATE 25 MG TABLET 50 MG PO (14:00)
--- NOTE | 2022-07-28 19:30 | PC.NURSE ---
Paper documentation exists on this patient due to [employer] [facility] downtime on 07/28/22 from 0030 to 1900 .
[2022-07-28 19:35] LABS: Pneumococcal Antigen Urine Not Detected (Not Detected)
[2022-07-29 06:53] LABS: Legionella pneumophila Ag Ur Not Detected (Not Detected)
--- NOTE | 2022-08-14 13:26 | PM.DS ---
DS: Admitting Diagnosis Discharge Date 07/28/22 Admitting Diagnosis Altered mental status DS: Discharge Diagnosis Discharge Diagnosis (1) Pneumonia: Code(s): J18.9 - Pneumonia, unspecified organism Status: Acute Assessment and Plan: CXR on presentation shows bibasilar airspace opacities concerning for pneumonia. Patient with mild leukocytosis on presentation. Remains afebrile. Started on ceftriaxone and azithromycin Blood cultures Negative Sputum culture not performed COVID and influenza negative Urinary Legionella and pneumococcal antigens pending Continue oral abx Discharge when okay with care coordination (2) Altered mental status: Code(s): R41.82 - Altered mental status, unspecified Status: Acute Assessment and Plan: Per patient's , patient more acutely confused prior to presentation, likely secondary to infectious etiology in the setting of dementia. Patient appears to be at his baseline at this time. Continue with supportive care and plan as above (3) Dementia with behavioral disturbance: Code(s): F03.918 - Unspecified dementia, unspecified severity, with other behavioral disturbance Status: Acute Assessment and Plan: With agitated/aggressive behavior. Home donepezil, memantine, and Seroquel have been resumed. Patient's no longer able to care for the patient independently at home and placement being arranged. Difficulty with placement given the patient's agitation at times. MMSE 3. Psych consulted and appreciate their input. B12, folate and VitD normal. Hepatitis, HIV negative. RPR pending. Medications have been adjusted. Appreciate psychiatry input. Also appreciate care coordination evaluation (4) Benign labile hypertension: Code(s): I10 - Essential (primary) hypertension Status: Acute Assessment and Plan: Patient's blood pressure was reviewed on 07/27 Systolic blood pressure elevated but better Was not on medications for HTN on admission. Low dose Norvasc added. Continue to monitor. DS: Summary Hospital Course Hospital Course: 81-year-old male presenting with altered mental status found to pneumonia. He does have a history of dementia and some associated combative behavior, possibly secondary to recent med changes. Psychiatry was consulted and recommended some medication changes. 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 Psychiatry recommendations per below. Donepezil (Aricept) will be increased to5mg p.o. q.h.s. to slow progression of Alzheimer's disease Memantine (Namenda) 5mg p.o. b.i.d. to slow progression of Alzheimer's disease Quetiapine (Seroquel) 25mg p.o. b.i.d. will be increased to 25mg p.o. q.a.m.; and, 50mg p.o. q.h.s. for target symptom of agitated dementia. Brexpiprazole (Rexulti) 0.5 mg po q am x 7 days; then, 1.0 mg po q am x 7 days; then 2.0 mg po q am x 7 or more days. The maximum dose is 3 mg po q am if needed.? This medication was FDA approved on 06/24/2022 for agitated dementia.? It is the only FDA approved medication for agitated dementia.? This medication has been entered as a non formulary medication and may take a couple of days before the medication can be started on the patient. The 1st line course of treatment should be conservative nursing intervention. As the patient's pneumonia continues to resolve, any delirium contribution should slowly resolve as well. custodial placement Serum RPR is still pending at time of this dictation Patient noted to have elevated blood pressure and started on low-dose Norvasc. CXR on presentation shows bibasilar airspace opacities concerning for pneumonia.? Patient with mild leukocytosis on presentation.? Remains afebrile. Started on ceftriaxone and azithromycin Blood cultures Negative Sputum culture not performed COVID and influenza negative Urinary Legionella and pneumococcal antigens pendingContinue oral abx Discharge when okay
== END 2022-07-28 18:00 ==
LOC: ANHED 20:04 → ANH2MED 07-22 06:26
PROVIDERS: Psychiatry & Neurology Psychiatry; Admitting Provider Internal Medicine; Emergency Provider Emergency Medicine; PCP Physician Assistant; Visit Provider Physician Assistant
DX: J18.9 Pneumonia, unspecified organism (principal); R41.82 Altered mental status, unspecified; F03.911 Unspecified dementia, unspecified severity, with agitation; Z11.4 Encounter for screening for human immunodeficiency virus [HIV]; I10 Essential (primary) hypertension; E78.5 Hyperlipidemia, unspecified; D72.829 Elevated white blood cell count, unspecified; R91.8 Other nonspecific abnormal finding of lung field; N40.0 Benign prostatic hyperplasia without lower urinary tract symptoms; M19.90 Unspecified osteoarthritis, unspecified site; K21.9 Gastro-esophageal reflux disease without esophagitis; Z20.822 Contact with and (suspected) exposure to COVID-19; Z87.891 Personal history of nicotine dependence; Z79.82 Long term (current) use of aspirin; Z79.1 Long term (current) use of non-steroidal anti-inflammatories (NSAID); Z79.84 Long term (current) use of oral hypoglycemic drugs; Z79.899 Other long term (current) drug therapy
CPT/HCPCS: 36415; 71045; 80048; 80053; 80074; 81003; 82306; 82607; 82746; 83735; 84443; 85025; 85027; 85610; 86592; 86703; 87040; 87070; 87205; 87449; 87637; 87899; 93005; 94667; 96365; 96366; 96372; 97110; 97161; 97165; 97530; 99285; A9270; G0378; G0432; J0456; J0696

== ENCOUNTER 2022-12-12 21:40 | Inpatient (IN) | payer MEDICARE, SELFPAY ==
[2022-12-12] VITALS (12 sets, daily range): BP systolic 135–155; BP diastolic 72–96; PULSE 99–111; RESP 21–26; TEMP 38.7; O2SAT 92–98
--- NOTE | ~2022-12-12 | XR_ITS ---
EXAMINATION: XR chest 1V portable DATE: 12/12/2022 22:15 INDICATION: Cough. TECHNIQUE: A single frontal view of the chest was obtained. COMPARISON: Chest view 07/21/2022 FINDINGS: There is mild atelectasis in the lower lung zones. No pleural effusion or pneumothorax. The heart size is normal. IMPRESSION: 1. Mild atelectasis in the lower lung zones. Reviewed, dictated and finalized at location E.
--- NOTE | 2022-12-12 22:01 | ECG_ITS ---
Measurements Intervals [place] Rate: 109 P: 40 CA: 162 QRS: 11 QRSD: 71 T: 36 QT: 310 QTc: 419 Interpretive Statements SINUS TACHYCARDIA LOW QRS VOLTAGE IN PRECORDIAL LEADS [QRS DEFLECTION < 1.0 mV IN CHEST LEADS] POSSIBLE ANTERIOR MYOCARDIAL INFARCTION , PROBABLY OLD [30 ms Q WAVE IN V3/V4, OR R < 0.2 mV IN V4] ABNORMAL ECG COMPARED TO ECG 07/22/2022 10:13:17 SINUS TACHYCARDIA NOW PRESENT Electronically Signed On 12-13-2022 8:50:57 CDT by Wil Barajas M.D.
[2022-12-12 22:22] LABS: Basophils Percent Auto 0.3 % (0.2-1.2); Eosinophils Percent Auto 0.1 % (0-4.4); Hematocrit 41.3 % (42.0-52.0); Hemoglobin 13.3 g/dL (14.0-18.0); Immature Granulocyte Absolute 0.03 K/mm3 (0.00-0.031); Immature Granulocyte Percent A 0.3 % (0-0.5); Lymphocytes Absolute Auto 0.54 K/mm3 (0.9-3.2); Lymphocytes Percent Auto 5.6 % (18.3-44.2); Mean Corpuscular HGB Conc 32.2 g/dl (32-36); Mean Corpuscular Volume 99.5 fl (80-100); Mean Platelet Volume 10.7 fl (7.4-10.4); Monocytes Absolute Auto 1.3 K/mm3 (0.1-0.6); Monocytes Percent Auto 13.4 % (2.6-8.5); Neutrophils Absolute Auto 7.7 K/mm3 (1.3-6.7); Neutrophils Percent Auto 80.3 % (45.5-73.1); Platelet Count Result 254 k/mm3 (150-375); Red Blood Count 4.15 M/mm3 (4.6-6.20); Red Cell Distribution Width 12.6 % (11.5-14.5); White Blood Count 9.6 K/mm3 (4.5-10.0)
--- NOTE | 2022-12-12 22:24 | ED.GENADULT ---
HPI - General Adult General Chief complaint: Upper Respiratory Infection Stated complaint: covid Time Seen by Provider: 12/12/22 21:45 History of Present Illness HPI narrative: Patient brought to the emergency department by EMS from [facility]. At baseline he is alert and oriented x1. Is normally alert and ambulates without difficulty. However he is not lethargic. Patient tested positive for COVID at the nursing facility. EMS and put him on oxygen but he is on room air with a normal oxygen saturation here history is limited due to patient's medical state. He sits with his head forward and his eyes closed unless spoken to and then answers with answers Related Data Home Medications Medication Instructions Recorded Confirmed glucosamine HCl 1,500 mg tablet 1,500 mg PO DAILY 02/21/19 11/11/22 aspirin 325 mg tablet 325 mg PO HS 07/04/19 11/11/22 cetirizine 10 mg tablet (Zyrtec) 10 mg PO DAILY 07/04/19 11/11/22 omega-3 fatty acids 1,000 mg 1,000 mg PO BID 07/04/19 11/11/22 capsule (Fish Oil Concentrate) docusate sodium 100 mg capsule 100 mg PO TID 07/21/22 11/11/22 multivitamin with minerals 1 tablet PO DAILY 07/21/22 11/11/22 niacin 500 mg capsule 500 mg PO BID 07/21/22 11/11/22 Allergies Allergy/AdvReac Type Severity Reaction Status Date / Time No Known Allergies Allergy Verified 06/21/22 10:10 Review of Systems Review of Systems: ROS unobtainable: Yes unobtainable due to medical condition PMFSH Surgical History Surgical History H/O total cystectomy History of back surgery Hx of cholecystectomy Hx of hernia repair Family History Family History Father Family history of congestive heart failure, Onset Age: 69 Acute myocardial infarction, Onset Age: 69 Mother Family history of alcoholism Acute myocardial infarction, Onset Age: 62 Social History Social History Smoking status: Former smoker Alcohol intake: never Substance use: never Substance use type: does not use Lack of Transportation: No Lack of Food: Never True Current Housing: I Have Housing Concerned About Future Housing: No Difficulty Paying Gas/Electric Bills: No Difficulty Paying for Meds: No Currently Unemployed: No Education: High School Diploma/GED Difficulty w/ Childcare or Family Care: No Spiritual care concerns: No Exam Narrative: GENERAL: well-nourished, appears sick and somewhat lethargic HEAD: Normocephalic, atraumatic. EYES: PERRLA and EOMI. ENT: Nares clear, no rhinorrhea or epistaxis. Mucous membranes moist. NECK: Supple. CHEST: Clear to auscultation. No respiratory distress. HEART: Tachycardic ABDOMEN: Soft, nontender, nondistended. EXTREMITIES: Normal range of motion. No edema. SKIN: Warm, dry, no rash. NEURO: No focal deficits. Alert and oriented x1 PSYCH: Normal mood and affect. Course Course Emergency Course: Differential diagnosis includes but not limited to bacterial pneumonia, COVID, dehydration, acute renal insufficiency Telemetry ordered due to sinus tachycardia to evaluate for dysrhythmias. Evaluated by myself. Rhythm NS Rate 109 Vital Signs Vital signs: Vital Signs Temperature 38.7 C H 12/12/22 21:49 Pulse Rate 109 H 12/12/22 21:49 Respiratory Rate 26 H 12/12/22 21:49 Blood Pressure 150/96 H 12/12/22 21:49 Pulse Oximetry 94 12/12/22 21:49 Oxygen Delivery Room Air 12/12/22 21:49 Temperature 36.8 C 12/13/22 00:00 Pulse Rate 96 12/13/22 00:46 Respiratory Rate 24 H 12/13/22 00:46 Blood Pressure 138/72 12/13/22 00:45 Pulse Oximetry 77 L 12/13/22 00:15 Oxygen Delivery Nasal Cannula 12/12/22 22:40 Oxygen Flow Rate 2 12/12/22 22:40 Medical Decision Making MDM Narrative Medical decision making narrative: Patient's chest x-ray was ordered and read by myse
[2022-12-12] MEDS: ACETAMINOPHEN 325 MG TABLET 650 MG PO (22:26)
[2022-12-12] MEDS: SODIUM CHLORIDE 0.9% IV 1,000 ML 999 ML IV CONT (22:26)
[2022-12-12 22:32] LABS: Alveolar/Arterial O2 Gradient 52.1 mmHg; Base Excess ABG -1.7 mEq/l (+/-2.0); Fractional Inspired Oxygen 21 %; HCO3 ABG 20.9 mEq/l (22.0-26.0); Oxygen Content ABG 18.2 %vol (16.0-22.0); Oxygen Saturation ABG 93.3 % (95.0-100.0); Oxyhemoglobin 90.7 % THb (90.0-100.0); PCO2 ABG 29.8 mmHg (35.0-45.0); PO2 ABG 61.9 mmHg (80.0-100.0); PO2 FiO2 Ratio Arterial Blood 2.95 %; Total Hemoglobin 14.3 g/dL (12.0-18.0); pH ABG 7.464 (7.350-7.450)
[2022-12-12 22:33] LABS: Device ROOM AIR; Modified Allen's Test Pass; Site Drawn RIGHT RADIAL
[2022-12-12 23:15] LABS: Influenza A QL RT-PCR Negative (Negative); Influenza B QL RT-PCR Negative (Negative); RSV RNA, RT-PCR Negative (Negative); SARS-CoV-2 RNA PCR Positive (Negative)
[2022-12-13] VITALS (27 sets, daily range): BP systolic 96–157; BP diastolic 56–111; PULSE 67–110; RESP 15–26; TEMP 36.8–36.9; O2SAT 77–97
[2022-12-13 00:02] LABS: Alanine Aminotransferase 25 U/L (6-50); Albumin Level 4.1 g/dL (3.5-5.1); Alkaline Phosphatase 82 U/L (38-126); Anion Gap 7 mmol/L (8-16); Aspartate Amino Transferase 32 U/L (17-59); Bilirubin,Total 0.8 mg/dL (0.2-1.3); Blood Urea Nitrogen 12 mg/dL (9-20); Calcium 8.7 mg/dL (8.4-10.2); Carbon Dioxide 24 mmol/L (22-30); Chloride 103 mmol/L (98-107); Estimated CRCL calculation 66 ml/min; Estimated Glomerular Filt Rate > 60; Glucose 119 mg/dL (65-110); Potassium 4.1 mmol/L (3.4-5.0); Sodium 134 mmol/L (137-145)
[2022-12-13 00:07] LABS: Lactic Acid Reflex 1.1 mmol/L (0.7-2.0)
[2022-12-13 00:13] LABS: Troponin I < 0.012 ng/mL (0.000-0.034)
[2022-12-13 01:54] LABS: Troponin I 0.016 ng/mL (0.000-0.034)
--- NOTE | 2022-12-13 02:54 | PC.NURSE ---
Pt axox2 but removing monitoring equipment. Unaware of year and events. Pt had removed NC and found pt with RA sats 88%. O2 placed back on and quickly back up to 95%.
[2022-12-13] MEDS: REMDESIVIR 200 MG/NS 250 ML 200 MG/250 ML BAG 250 MG IVPB (03:45)
--- NOTE | 2022-12-13 04:32 | ADMGEN ---
This patient, Bam Stoddard Sr., was admitted to Medical Room 252-01. Patient/family oriented to hospital policies and general routines including ID bracelet, bed and alarms, visiting hours, pain management, procedures, bathroom and other care routines, personal items, smoking policy, room service/diet, and visiting hours. Information on how to activate the Rapid Response Team has been discussed. Patient/Family are encouraged to report perceived risks to care and to ask questions if they do not understand what they are told or what they should do.
--- NOTE | 2022-12-13 05:03 | PM.IMHP ---
H&P: HPI History of Present Illness Date/Time: 12/13/22 05:03 Chief Complaint: Recent COVID diagnosis requiring oxygen Narrative: 82-year-old male with a past medical history of dementia with behaviors, essential hypertension, GERD and BPH who presented to the ER from [facility] due to developing hypoxia with recent diagnosis of COVID. Patient is alert orient x1 at baseline. The patient was satting 90% on room air when EMS arrived at the facility. The patient's oxygen saturations improved to 94% on room air by time he arrived to the ER but then did drop again. He was noted to be tachypneic with a rate in the mid 20s and tachycardic a heart rate in the low 100s. On initial presentation he was febrile with temperature of 101.7?. The patient was sleeping for the most part in the ER but would arouse to verbal stimuli. At the time my evaluation the patient would moan and turned his head away from the examiner but was not following commands. Review of Systems Review of Systems: ROS unobtainable: Yes unobtainable due to medical condition (Dementia) [facility] Past Medical History Medical History (Updated 12/13/22 @ 05:11 by Sarah Loco DO) BPH (benign prostatic hyperplasia) Dementia with behavioral disturbance Depression Insomnia disorder Lumbar radiculopathy Mild atherosclerosis of both carotid arteries Mixed hyperlipidemia Surgical History Surgical History H/O total cystectomy History of back surgery Hx of cholecystectomy Hx of hernia repair Family History Family History Father Family history of congestive heart failure, Onset Age: 69 Acute myocardial infarction, Onset Age: 69 Mother Family history of alcoholism Acute myocardial infarction, Onset Age: 62 Social History Social History (Updated 12/13/22 @ 05:11 by Sarah Loco DO) Social History: Patient resides at [facility]. Code status: DNR/DNI Smoking status: Former smoker Alcohol intake: never Substance use: never Substance use type: does not use Lack of Transportation: No Lack of Food: Never True Current Housing: I Have Housing Concerned About Future Housing: No Difficulty Paying Gas/Electric Bills: No Difficulty Paying for Meds: No Currently Unemployed: No Education: High School Diploma/GED Difficulty w/ Childcare or Family Care: No Spiritual care concerns: No Meds Home Medications and Allergies Home Medications Medication Instructions Recorded Confirmed Type glucosamine HCl 1,500 mg tablet 1,500 mg PO DAILY 02/21/19 12/13/22 History aspirin 325 mg tablet 325 mg PO HS 07/04/19 12/13/22 History multivitamin with minerals 1 tablet PO DAILY 07/21/22 12/13/22 History niacin 500 mg capsule 500 mg PO BID 07/21/22 12/13/22 History amlodipine 2.5 mg tablet 2.5 mg PO DAILY #100 tabs 09/01/22 12/13/22 Rx donepezil 5 mg tablet (Aricept) 5 mg PO QHS #100 tabs 09/02/22 12/13/22 Rx famotidine 20 mg tablet 20 mg PO DAILY #100 tabs 09/02/22 12/13/22 Rx finasteride 5 mg tablet 5 mg PO DAILY #100 tabs 09/02/22 12/13/22 Rx simvastatin 10 mg tablet 10 mg PO HS #100 tabs 09/02/22 12/13/22 Rx tamsulosin 0.4 mg capsule 0.4 mg PO DAILY #100 caps 09/02/22 12/13/22 Rx Saline Nasal Mist 1 spray EACH NARE QID 12/13/22 12/13/22 History aripiprazole 5 mg tablet 2.5 mg PO QAM 12/13/22 12/13/22 History aripiprazole 5 mg tablet (Abilify) 5 mg PO HS 12/13/22 12/13/22 History fexofenadine 60 mg tablet 60 mg PO Q12H 12/13/22 12/13/22 History memantine 5 mg tablet 5 mg PO QAM 12/13/22 12/13/22 History naproxen 500 mg tablet 500 mg PO TID PRN Pain (Scale 12/13/22 12/13/22 History Score 1-3) quetiapine 25 mg tablet (Seroquel) 50 mg PO HS 12/13/22 12/13/22 History Allergies Allergy/AdvReac Type Severity Reaction Status Date / Time No Known Allergies Allergy Verified 06/21/22 10:10
[2022-12-13 06:07] LABS: INR 1.1; Prothrombin Time 14.2 Seconds (11.1-14.7)
[2022-12-13] MEDS: FAMOTIDINE 20 MG TABLET PO (08:29)
[2022-12-13] MEDS: amLODIPine BESYLATE 2.5 MG TABLET PO (08:29)
[2022-12-13] MEDS: FINASTERIDE 5 MG TABLET PO (08:29)
[2022-12-13] MEDS: LORATADINE 10 MG TABLET PO (08:29)
[2022-12-13] MEDS: ARIPiprazole 2.5 MG TABLET PO (08:29)
[2022-12-13] MEDS: THERAPEUTIC MULTIVITAMINS/MINERALS TAB (*BKC) 1 TABLET PO (08:29)
[2022-12-13] MEDS: NIACIN SA 500 MG TABLET PO ×2 (08:29→16:16)
[2022-12-13] MEDS: ENOXAPARIN 40 MG/0.4 ML SYRINGE SUB-Q (08:29)
[2022-12-13] MEDS: TAMSULOSIN HCL 0.4 MG CAPSULE PO (08:29)
[2022-12-13] MEDS: MEMANTINE 5 MG TABLET PO (08:29)
--- NOTE | 2022-12-13 11:09 | PM.IMPN ---
Progress Note: A&P Assessment and Plan (1) Pneumonia due to 2019-nCoV: Code(s): U07.1 - COVID-19; J12.82 - Pneumonia due to coronavirus disease 2019 Status: Acute Assessment and Plan: Patient has pneumonia due to COVID causing acute hypoxic respiratory failure. CXR with mild atelectasis in the lower lung mulligan. Patient was started on dexamethasone and Remdesivir. Wean oxygen as tolerated. The patient initially had tachycardia but this is resolved with resolution of the fever and 1 L fluid bolus. Continue supportive care with Tylenol. (2) Hypoxemia requiring supplemental oxygen: Code(s): R09.02 - Hypoxemia; Z99.81 - Dependence on supplemental oxygen Status: Acute Assessment and Plan: As above (3) Delirium: Code(s): R41.0 - Disorientation, unspecified Status: Acute Assessment and Plan: Patient had delirium complicating dementia likely due to acute infection with COVID. Will continue patient's home psychiatric and dementia medications. (4) Dementia with behavioral disturbance: Code(s): F03.918 - Unspecified dementia, unspecified severity, with other behavioral disturbance Status: Acute Assessment and Plan: As above (5) BPH (benign prostatic hyperplasia): Qualifiers: Lower urinary tract symptom presence: unspecified whether lower urinary tract symptoms present Qualified Code(s): N40.0 - Benign prostatic hyperplasia without lower urinary tract symptoms Code(s): N40.0 - Benign prostatic hyperplasia without lower urinary tract symptoms Status: Acute Assessment and Plan: Patient has BPH. Urine output has been adequate. Continue Flomax and Proscar. (6) Essential hypertension: Code(s): I10 - Essential (primary) hypertension Status: Acute Assessment and Plan: Patient's blood pressure was reviewed on 12/13 Blood pressure elevated at times. Will continue Norvasc. Plan DVT Prophylaxis - lovenox Code status - DNR Subjective Date/time seen: 12/13/22 11:09 Interval history: 82yo male with dementia with behavioral disturbance, BPH and depression here for COVID and hypoxia. Patient is alert but confused so hx unreliable. He denies CP, SOB, cough, nausea or vomiting. Exam Narrative: Tm 101.7 98.2 157/68 87 20 97% 2L Gen - NARD Chest - CTA bilaterally, nml RR CV - RRR S1/S2 Abd - Soft, NT/ND, Positive BS Ext -trace pedal edema Neuro -alert but confused. No focal weakness Psych - Nml mood and affect Skin - Warm and dry Objective Data Vital Signs Vital Signs: Vital Signs - 24 hr 12/12/22 21:49 12/12/22 21:49 12/12/22 22:40 Temperature 101.7 F H Pulse Rate 109 H Respiratory Rate 26 H Blood Pressure 150/96 H Pulse Oximetry 94 94 98 Oxygen Delivery Room Air Room Air Nasal Cannula Oxygen Flow Rate 2 12/12/22 22:30 12/13/22 00:00 12/12/22 22:51 Temperature 98.2 F Pulse Rate 106 H Respiratory Rate 25 H Blood Pressure Pulse Oximetry 92 98 Oxygen Delivery Room Air Oxygen Flow Rate 12/12/22 23:00 12/12/22 23:01 12/12/22 23:15 Temperature Pulse Rate 104 H 105 H 103 H Respiratory Rate 25 H 24 H 24 H Blood Pressure 135/73 155/76 H Pulse Oximetry 96 98 97 Oxygen Delivery Oxygen Flow Rate 12/12/22 23:16 12/12/22 23:31 12/12/22 23:42 Temperature Pulse Rate 99 110 H 111 H Respiratory Rate 24 H 23 H 21 H Blood Pressure 148/72 H Pulse Oximetry 97 Oxygen Delivery Oxygen Flow Rate 12/12/22 23:46 12/12/22 23:50 12/13/22 00:08 Temperature Pulse Rate 110 H 108 H Respiratory Rate 24 H 25 H Blood Pressure 146/77 H Pulse Oximetry Oxygen Delivery Oxygen Flow Rate 12/13/22 00:15 12/13/22 00:16 12/13/22 00:36 Temperature Pulse Rate 110 H 110 H 106 H Respiratory Rate 26 H 25 H 22 H Blood Pressure Pulse Oximetry 77 L Oxygen Delivery Oxygen Flow Rate
[2022-12-13] MEDS: ARIPiprazole 5 MG TABLET PO (20:14)
[2022-12-13] MEDS: QUEtiapine FUMARATE 25 MG TABLET 50 MG PO (20:14)
[2022-12-13] MEDS: ASPIRIN 325 MG TABLET PO (20:14)
[2022-12-13] MEDS: SIMVASTATIN 10 MG TABLET PO (20:14)
[2022-12-13] MEDS: DONEPEZIL HCL 5 MG TABLET PO (20:14)
[2022-12-14 05:14] VITALS: BP 151/69; PULSE 71; RESP 18; TEMP 36.4; O2SAT 97
[2022-12-14 06:47] LABS: Hemoglobin 12.9 g/dL (14.0-18.0); Mean Corpuscular HGB Conc 32.3 g/dl (32-36); Mean Corpuscular Hemoglobin 31.9 pg (26-34); Mean Corpuscular Volume 98.8 fl (80-100); Mean Platelet Volume 10.4 fl (7.4-10.4); Platelet Count Result 217 k/mm3 (150-375); Red Blood Count 4.05 M/mm3 (4.6-6.20); Red Cell Distribution Width 12.4 % (11.5-14.5); White Blood Count 9.7 K/mm3 (4.5-10.0)
[2022-12-14 06:59] LABS: Alanine Aminotransferase 26 U/L (6-50); Albumin Level 3.4 g/dL (3.5-5.1); Alkaline Phosphatase 64 U/L (38-126); Anion Gap 5 mmol/L (8-16); Aspartate Amino Transferase 40 U/L (17-59); Bilirubin,Total 0.5 mg/dL (0.2-1.3); Blood Urea Nitrogen 18 mg/dL (9-20); Calcium 8.2 mg/dL (8.4-10.2); Carbon Dioxide 23 mmol/L (22-30); Chloride 107 mmol/L (98-107); Estimated CRCL calculation 74 ml/min; Estimated Glomerular Filt Rate > 60; Glucose 106 mg/dL (65-110); Potassium 3.8 mmol/L (3.4-5.0); Sodium 135 mmol/L (137-145)
[2022-12-14 08:00] VITALS: O2SAT 97
[2022-12-14] MEDS: TAMSULOSIN HCL 0.4 MG CAPSULE PO (08:19)
[2022-12-14] MEDS: NIACIN SA 500 MG TABLET PO ×2 (08:19→16:45)
[2022-12-14] MEDS: amLODIPine BESYLATE 2.5 MG TABLET PO (08:19)
[2022-12-14] MEDS: FINASTERIDE 5 MG TABLET PO (08:19)
[2022-12-14] MEDS: FAMOTIDINE 20 MG TABLET PO (08:19)
[2022-12-14] MEDS: MEMANTINE 5 MG TABLET PO (08:20)
[2022-12-14] MEDS: ENOXAPARIN 40 MG/0.4 ML SYRINGE SUB-Q (08:20)
[2022-12-14] MEDS: THERAPEUTIC MULTIVITAMINS/MINERALS TAB (*BKC) 1 TABLET PO (08:20)
[2022-12-14] MEDS: LORATADINE 10 MG TABLET PO (08:20)
[2022-12-14] MEDS: ARIPiprazole 2.5 MG TABLET PO (08:20)
[2022-12-14] MEDS: REMDESIVIR 100 MG/NS 250 ML 100 MG/250 ML BAG 250 MG IVPB (09:30)
[2022-12-14 14:00] VITALS: BP 148/66; PULSE 70; RESP 18; TEMP 36.4; O2SAT 97
--- NOTE | 2022-12-14 17:16 | PM.IMPN ---
Progress Note: A&P Assessment and Plan (1) Pneumonia due to 2019-nCoV: Code(s): U07.1 - COVID-19; J12.82 - Pneumonia due to coronavirus disease 2019 Status: Acute Assessment and Plan: Patient has pneumonia due to COVID causing acute hypoxic respiratory failure. CXR with mild atelectasis in the lower lung mulligan. Patient was started on dexamethasone and Remdesivir which we will continue. The patient initially had tachycardia but this is resolved with resolution of the fever and 1 L fluid bolus. He has annie weaned off oxygen Continue supportive care (2) Hypoxemia requiring supplemental oxygen: Code(s): R09.02 - Hypoxemia; Z99.81 - Dependence on supplemental oxygen Status: Acute Assessment and Plan: As above (3) Delirium: Code(s): R41.0 - Disorientation, unspecified Status: Acute Assessment and Plan: Patient had delirium complicating dementia likely due to acute infection with COVID. We continued patient's home psychiatric and dementia medications. Mood stable (4) Dementia with behavioral disturbance: Code(s): F03.918 - Unspecified dementia, unspecified severity, with other behavioral disturbance Status: Acute Assessment and Plan: As above (5) BPH (benign prostatic hyperplasia): Qualifiers: Lower urinary tract symptom presence: unspecified whether lower urinary tract symptoms present Qualified Code(s): N40.0 - Benign prostatic hyperplasia without lower urinary tract symptoms Code(s): N40.0 - Benign prostatic hyperplasia without lower urinary tract symptoms Status: Acute Assessment and Plan: Patient has BPH. Urine output has been adequate. Continue Flomax and Proscar. (6) Essential hypertension: Code(s): I10 - Essential (primary) hypertension Status: Acute Assessment and Plan: Patient's blood pressure was reviewed on 12/14 Blood pressure elevated at times. Will continue Norvasc. Plan DVT Prophylaxis - lovenox Code status - DNR Subjective Date/time seen: 12/14/22 0830 Interval history: 82yo male with dementia with behavioral disturbance, BPH and depression here for COVID and hypoxia. Patient is alert but confused so hx unreliable. He denies CP, SOB or cough. weaned to room air today Exam Narrative: AF 97.5 148/66 70 18 97% ra Gen - NARD Chest - clear anteriorly and in the flanks, nml RR CV - RRR S1/S2 Abd - Soft, NT/ND, Positive BS Ext - no pedal edema Neuro -alert but confused. Psych - Nml mood and affect Skin - Warm and dry Objective Data Vital Signs Vital Signs: Vital Signs - 24 hr 12/13/22 21:00 12/13/22 20:00 12/14/22 05:14 Temperature 98.2 F 97.5 F L Pulse Rate 67 71 Respiratory Rate 18 18 Blood Pressure 122/72 151/69 H Pulse Oximetry 97 97 97 Oxygen Delivery Nasal Cannula Oxygen Flow Rate 1 12/14/22 08:00 12/14/22 14:00 Temperature 97.5 F L Pulse Rate 70 Respiratory Rate 18 Blood Pressure 148/66 H Pulse Oximetry 97 97 Oxygen Delivery Room Air Oxygen Flow Rate Intake/Output Intake/Output: Intake & Output 12/11/22 12/12/22 12/13/22 12/14/22 23:59 23:59 23:59 23:59 Intake Total 2240 840 Output Total 450 Balance 1790 840 Meds/Results Medications: Active Medications Generic Name Dose Route Start Last Admin Trade Name Freq PRN Reason Stop Dose Admin Acetaminophen 650 mg 12/13/22 05:14 Acetaminophen 325 Mg Tablet PO Q4H PRN Mild Pain (1-3) or Fever Amlodipine Besylate 2.5 mg 12/13/22 09:00 12/14/22 08:19 Amlodipine Besylate 2.5 Mg Tablet PO 2.5 mg DAILY JENNY Administration Aripiprazole 2.5 mg 12/13/22 09:00 12/14/22 08:20 Aripiprazole 2.5 Mg Tablet PO 2.5 mg QAM JENNY Administration Aripiprazole 5 mg 12/13/22 21:00 12/13/22 20:14 Aripiprazole 5 Mg Tablet PO 5 mg HS JENNY Administration Aspirin 325 mg 12/13/22 21:00 12/13/22 2
[2022-12-14 19:57] VITALS: BP 136/69; PULSE 70; RESP 20; TEMP 36.7; O2SAT 98
[2022-12-14 20:00] VITALS: PULSE 70; RESP 20; O2SAT 98
[2022-12-14] MEDS: QUEtiapine FUMARATE 25 MG TABLET 50 MG PO (20:42)
[2022-12-14] MEDS: DONEPEZIL HCL 5 MG TABLET PO (20:42)
[2022-12-14] MEDS: SIMVASTATIN 10 MG TABLET PO (20:42)
[2022-12-14] MEDS: ASPIRIN 325 MG TABLET PO (20:42)
[2022-12-14] MEDS: ARIPiprazole 5 MG TABLET PO (20:42)
[2022-12-15 03:08] VITALS: BP 135/63; PULSE 62; RESP 20; TEMP 36.4; O2SAT 94
[2022-12-15 06:17] LABS: Prothrombin Time 14.2 Seconds (11.1-14.7)
[2022-12-15 06:36] LABS: Alanine Aminotransferase 26 U/L (6-50); Albumin Level 3.2 g/dL (3.5-5.1); Alkaline Phosphatase 69 U/L (38-126); Aspartate Amino Transferase 37 U/L (17-59); Bilirubin,Total 0.4 mg/dL (0.2-1.3)
--- NOTE | 2022-12-15 09:01 | PM.IMPN ---
Progress Note: A&P Assessment and Plan (1) Pneumonia due to 2019-nCoV: Code(s): U07.1 - COVID-19; J12.82 - Pneumonia due to coronavirus disease 2019 Status: Acute Assessment and Plan: Patient has pneumonia due to COVID causing acute hypoxic respiratory failure. CXR with mild atelectasis in the lower lung mulligan. Patient was started on dexamethasone and Remdesivir which we will continue. The patient initially had tachycardia but this is resolved with resolution of the fever and 1 L fluid bolus. He has annie weaned off oxygen Continue supportive care (2) Hypoxemia requiring supplemental oxygen: Code(s): R09.02 - Hypoxemia; Z99.81 - Dependence on supplemental oxygen Status: Acute Assessment and Plan: As above (3) Delirium: Code(s): R41.0 - Disorientation, unspecified Status: Acute Assessment and Plan: Patient had delirium complicating dementia likely due to acute infection with COVID. We continued patient's home psychiatric and dementia medications. Mood stable (4) Dementia with behavioral disturbance: Code(s): F03.918 - Unspecified dementia, unspecified severity, with other behavioral disturbance Status: Acute Assessment and Plan: As above (5) BPH (benign prostatic hyperplasia): Qualifiers: Lower urinary tract symptom presence: unspecified whether lower urinary tract symptoms present Qualified Code(s): N40.0 - Benign prostatic hyperplasia without lower urinary tract symptoms Code(s): N40.0 - Benign prostatic hyperplasia without lower urinary tract symptoms Status: Acute Assessment and Plan: Patient has BPH. Urine output has been adequate. Continue Flomax and Proscar. (6) Essential hypertension: Code(s): I10 - Essential (primary) hypertension Status: Acute Assessment and Plan: Patient's blood pressure was reviewed on 12/14 Blood pressure elevated at times. Will continue Norvasc. Plan DVT Prophylaxis - lovenox Code status - DNR Subjective Date/time seen: 12/15/22 09:01 Interval history: 82yo male with dementia with behavioral disturbance, BPH and depression here for COVID and hypoxia. Patient is alert but confused so hx unreliable. He denies CP, SOB or cough. weaned to room air today Review of Systems Review of Systems: 12 point review of systems was assessed and was negative except as noted in the HPI Exam Narrative: AF 97.5 148/66 70 18 97% ra Gen - NARD Chest - clear anteriorly and in the flanks, nml RR CV - RRR S1/S2 Abd - Soft, NT/ND, Positive BS Ext - no pedal edema Neuro -alert but confused. Psych - Nml mood and affect Skin - Warm and dry Objective Data Vital Signs Vital Signs: Vital Signs - 24 hr 12/14/22 14:00 12/14/22 19:57 12/14/22 20:00 Temperature 97.5 F L 98.1 F Pulse Rate 70 70 70 Respiratory Rate 18 20 20 Blood Pressure 148/66 H 136/69 Pulse Oximetry 97 98 98 Oxygen Delivery Room Air 12/15/22 03:08 Temperature 97.6 F Pulse Rate 62 Respiratory Rate 20 Blood Pressure 135/63 Pulse Oximetry 94 Oxygen Delivery Intake/Output Intake/Output: Intake & Output 12/12/22 12/13/22 12/14/22 12/15/22 23:59 23:59 23:59 23:59 Intake Total 2240 1640 240 Output Total 450 Balance 1790 1640 240 Meds/Results Medications: Active Medications Generic Name Dose Route Start Last Admin Trade Name Freq PRN Reason Stop Dose Admin Acetaminophen 650 mg 12/13/22 05:14 Acetaminophen 325 Mg Tablet PO Q4H PRN Mild Pain (1-3) or Fever Amlodipine Besylate 2.5 mg 12/13/22 09:00 12/14/22 08:19 Amlodipine Besylate 2.5 Mg Tablet PO 2.5 mg DAILY JENNY Administration Aripiprazole 2.5 mg 12/13/22 09:00 12/14/22 08:20 Aripiprazole 2.5 Mg Tablet PO 2.5 mg QAM JENNY Administration Aripiprazole 5 mg 12/13/22 21:00 12/14/22 20:42 Aripiprazole 5 Mg Tablet PO 5 mg HS JENNY
[2022-12-15] MEDS: THERAPEUTIC MULTIVITAMINS/MINERALS TAB (*BKC) 1 TABLET PO (09:32)
[2022-12-15] MEDS: ARIPiprazole 2.5 MG TABLET PO (09:32)
[2022-12-15] MEDS: FINASTERIDE 5 MG TABLET PO (09:32)
[2022-12-15] MEDS: FAMOTIDINE 20 MG TABLET PO (09:33)
[2022-12-15] MEDS: LORATADINE 10 MG TABLET PO (09:33)
[2022-12-15] MEDS: amLODIPine BESYLATE 2.5 MG TABLET PO (09:33)
[2022-12-15] MEDS: ENOXAPARIN 40 MG/0.4 ML SYRINGE SUB-Q (09:33)
[2022-12-15] MEDS: NIACIN SA 500 MG TABLET PO ×2 (09:33→17:03)
[2022-12-15] MEDS: TAMSULOSIN HCL 0.4 MG CAPSULE PO (09:33)
[2022-12-15] MEDS: MEMANTINE 5 MG TABLET PO (09:33)
[2022-12-15] MEDS: REMDESIVIR 100 MG/NS 250 ML 100 MG/250 ML BAG 250 MG IVPB (09:45)
--- NOTE | 2022-12-15 14:42 | PM.DS ---
DS: Admitting Diagnosis Discharge Date 12/15/22 Admitting Diagnosis sob DS: Discharge Diagnosis Discharge Diagnosis (1) Pneumonia due to 2019-nCoV: Code(s): U07.1 - COVID-19; J12.82 - Pneumonia due to coronavirus disease 2019 Status: Acute Assessment and Plan: Patient has pneumonia due to COVID causing acute hypoxic respiratory failure. CXR with mild atelectasis in the lower lung mulligan. Patient was started on dexamethasone and Remdesivir which we will continue. The patient initially had tachycardia but this is resolved with resolution of the fever and 1 L fluid bolus. He has annie weaned off oxygen Continue supportive care (2) Hypoxemia requiring supplemental oxygen: Code(s): R09.02 - Hypoxemia; Z99.81 - Dependence on supplemental oxygen Status: Acute Assessment and Plan: As above (3) Delirium: Code(s): R41.0 - Disorientation, unspecified Status: Acute Assessment and Plan: Patient had delirium complicating dementia likely due to acute infection with COVID. We continued patient's home psychiatric and dementia medications. Mood stable (4) Dementia with behavioral disturbance: Code(s): F03.918 - Unspecified dementia, unspecified severity, with other behavioral disturbance Status: Acute Assessment and Plan: As above (5) BPH (benign prostatic hyperplasia): Qualifiers: Lower urinary tract symptom presence: unspecified whether lower urinary tract symptoms present Qualified Code(s): N40.0 - Benign prostatic hyperplasia without lower urinary tract symptoms Code(s): N40.0 - Benign prostatic hyperplasia without lower urinary tract symptoms Status: Acute Assessment and Plan: Patient has BPH. Urine output has been adequate. Continue Flomax and Proscar. (6) Essential hypertension: Code(s): I10 - Essential (primary) hypertension Status: Acute Assessment and Plan: Patient's blood pressure was reviewed on 12/14 Blood pressure elevated at times. Will continue Norvasc. Plan DVT Prophylaxis - lovenox Code status - DNR DS: Summary Hospital Course Hospital Course: 82yo male with dementia with behavioral disturbance, BPH and depression here for COVID and hypoxia. Patient is alert but confused so hx unreliable. He denies CP, SOB or cough. weaned to room air today. Patient has pneumonia due to COVID causing acute hypoxic respiratory failure. CXR with mild atelectasis in the lower lung mulligan. Patient was started on dexamethasone and Remdesivir which we will continue.? The patient initially had tachycardia but this is resolved with resolution of the fever and 1 L fluid bolus.? He has annie weaned off oxygen? Continue supportive care All symptoms improved and he was discharged stable condition with close outpatient follow-up. Please see above and med rec for details. Time Spent with Patient Time attestation: Total time spent providing and/or coordinating discharge services: Exam Narrative: AF 97.5 148/66 70 18 97% ra Gen - NARD Chest - clear anteriorly and in the flanks, nml RR CV - RRR S1/S2 Abd - Soft, NT/ND, Positive BS Ext - no pedal edema Neuro -alert but confused. Psych - Nml mood and affect Skin - Warm and dry DS: Data Data Completed and Pending Labs on day of discharge: Labs from last 24 hours 12/15/22 05:45 PT 14.2 INR 1.0 Total Bilirubin 0.4 Direct Bilirubin 0.0 AST 37 ALT 26 Alkaline Phosphatase 69 Total Protein 6.0 L Albumin 3.2 L Preliminary micro results at discharge 12/12/22 22:25 Blood Culture - Preliminary Blood 12/12/22 22:31 Blood Culture - Preliminary Blood Discharge Plan Discharge Attending physician on discharge: Shadia Saleh Consulting providers: Bill Keith; Wil Barajas; Galen Ross V. Discharging Clinician: Shadia Saleh Patient Disposition: Home, Self-Care
[2022-12-15 15:18] VITALS: BP 135/61; PULSE 68; RESP 18; TEMP 36.6; O2SAT 99
== END 2022-12-15 19:30 | DRG 177 ==
LOC: ANHED 12-13 02:38 → ANH2MED 12-13 02:53
PROVIDERS: Internal Medicine; Admitting Provider Internal Medicine; Emergency Provider Emergency Medicine; PCP Physician Assistant; Visit Provider Student in an Organized Health Care Education/Training Program
DX: U07.1 COVID-19 (principal); J12.82 Pneumonia due to coronavirus disease 2019; J96.01 Acute respiratory failure with hypoxia; F05 Delirium due to known physiological condition; F03.918 Unspecified dementia, unspecified severity, with other behavioral disturbance; N40.0 Benign prostatic hyperplasia without lower urinary tract symptoms; F32.A Depression, unspecified; Z66 Do not resuscitate; I10 Essential (primary) hypertension; Z99.81 Dependence on supplemental oxygen; Z90.49 Acquired absence of other specified parts of digestive tract
CPT/HCPCS: 36415; 36600; 71045; 80053; 80076; 82805; 83605; 84484; 85025; 85027; 85610; 87040; 87637; 93005; 96360; 96361; 99285; A9270; J0248; J1100; J1650; J7030